=== PATIENT | male | born 1945 | race Caucasian/White ===

== ENCOUNTER 2017-02-03 15:01 | Emergency (ER) | payer MEDICARE, OTHER ==
[~2017-02-03] VITALS: Ht 175.3 cm; Wt 82.5 kg
[~2017-02-03 15:01] MED LIST: FER325 PO; LOSA1TAB3 PO; TOF50 PO; VALS160T20 PO; VILA40TA PO
[2017-02-03 15:03] VITALS: Ht 175.3 cm; Wt 82.5 kg
--- NOTE | 2017-02-03 17:06 | RADRPT ---
PROCEDURE: CT Brain without contrast. CLINICAL INDICATION: Fall with head injury. TECHNIQUE: A CT of the brain was performed on a [employer] CT scanner utilizi ng a low dose technique with axial imaging from the skull base through the vertex without IV contras t. Multiplanar reformatted images were made. Images were reviewed on a PACS workstation. The CTDI vol is 43.3 mGy and the DLP is 720.2 mGycm. One or more of the following dose reduction techniques were used: - Automated exposure control. - Adjustment of the mA and/or kV according to patient size. Use of iterative reconstruction technique. COMPARISON: None FINDINGS: The fourth ventricle is normal in size. The third and lateral ventricles are moderately dilated wit h proportional sulcal dilatation noted. A left frontal craniectomy was performed with encephalomala abhijeet of the left frontal lobe possibly from prior partial left frontal lobectomy. Subcutaneous emphys sary is noted at the site of the left frontal craniectomy which could be postsurgical in nature. There are vascular calcifications in the cavernous portions of the internal carotid arteries. There is skin lisette over the ventral scalp near the right frontal bone. The visible portions of the globes and extraocular muscles are normal. The paranasal sinuses are cl ear. The mastoid air cells and internal auditory canals are normal. The bony calvarium is intact. IMPRESSION: 1. Status post left frontal craniectomy with packing material containing small air pockets noted at the craniectomy site. 2. Scans lisette are noted adjacent to the outer table of the right frontal bone along the surface of the scalp. 3. 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 4. Atherosclerotic vascular calcifications in the cavernous portions of the internal carotid arteri es. 5. Mild cerebral atrophy. 6. Findings were discussed with Dr. Agrawal. RPTAT:AAJJ Physician Carmine Date Time Electronically viewed and signed by Physician Carmine on 02/03/2017 17:06 /
[2017-02-03] MEDS ORDERED: HYDR-3671 PO (17:08)
[2017-02-03] MEDS ORDERED: FOLI-49 PO (17:09)
[2017-02-03] MEDS ORDERED: FER325 PO (17:09)
[2017-02-03] MEDS ORDERED: CLON0.5T4 PO (17:10)
[2017-02-03] MEDS ORDERED: OMEP40CA6 PO (17:11)
[2017-02-03] MEDS ORDERED: TOF50 PO (17:11)
[2017-02-03] MEDS ORDERED: ROPI1TAB PO (17:11)
[2017-02-03] MEDS ORDERED: VILA40TA PO (17:12)
--- NOTE | 2017-02-03 17:25 | ERD ---
ER Documentation Chief Complaint Date/Time DATE: 02/03/17 TIME: 17:23 Chief Complaint dizziness x yesterday fell and hit head yesterday, denies pain HPI Patient is a 72-year-old male with hypertension and skin cancer who presents with a fall. The patient had a skin cancer removed 20 days ago. 2 days ago he fell and hit his head. He lost consciousness for a short period of time and has been dizzy since then. He is not on blood thinning medicines. His doctor told him to go to the emergency department for a CT scan of the brain. ROS All systems reviewed and are negative except as per history of present illness. Medications Home Meds Reported Medications Vilazodone Hcl (Viibryd) 40 Mg Tablet, 40 MG PO DAILY, TAB 02/03/17 Imipramine Hcl* (Imipramine Hcl*) 50 Mg Tablet, 50 MG PO HS, TAB 02/03/17 Omeprazole* (Omeprazole*) 40 Mg Capsule.dr, 40 MG PO DAILY, #30 CAP 02/03/17 Ropinirole Hcl* (Ropinirole Hcl*) 1 Mg Tablet, 1 MG PO HS, TAB 02/03/17 Clonazepam* (Clonazepam*) 0.5 Mg Tablet, 0.5 MG PO DAILY Y for ANXIETY, TAB 02/03/17 Folic Acid* (Folic Acid*) 1 Mg Tablet, 1 MG PO DAILY, TAB 02/03/17 Ferrous Sulfate* (Ferrous Sulfate*) 325 Mg Tabec, 325 MG PO BID, TAB 02/03/17 Hydralazine Hcl* (Hydralazine Hcl*) 25 Mg Tab, 25 MG PO BID, #60 TAB 02/03/17 Discontinued Reported Medications Ferrous Sulfate* (Ferrous Sulfate*) 325 Mg Tabec, 325 MG PO DAILY, TAB 03/29/16 Valsartan* (Diovan*) 160 Mg Tablet, 160 MG PO DAILY, TAB 03/29/16 Imipramine Hcl* (Imipramine Hcl*) 50 Mg Tablet, 50 MG PO HS, TAB 03/29/16 Vilazodone Hcl (Viibryd) 40 Mg Tablet, 40 MG PO DAILY, TAB 11/21/15 Losartan-Hydrochlorothiazide (Hyzaar) 50-12.5 Mg Tab, 1 MG PO DAILY, TAB 11/21/15 Allergies Allergies: Coded Allergies: ondansetron (Verified Allergy, Unknown, PAIN/HIVES, 02/03/17) PMhx/Soc History of Surgery: Yes (SPINE SURGERY AND BOWEL) Anesthesia Reaction: No Hx Neurological Disorder: No Hx Respiratory Disorders: No Hx Cardiac Disorders: Yes (HTN) Hx Psychiatric Problems: No Hx Miscellaneous Medical Probl: No (lac to forehead) Hx Alcohol Use: No Hx Substance Use: No Hx Tobacco Use: No Smoking Status: Never smoker FmHx Family History: diabetes Physical Exam Vitals Vital Signs Date Time Temp Pulse Resp B/P Pulse Ox O2 Delivery O2 Flow Rate FiO2 02/03/17 15:03 96.7 65 18 123/75 99 Physical Exam Const: No acute distress Head: Atraumatic Eyes: Normal Conjunctiva ENT: Normal External Ears, Nose and Mouth. Neck: Full range of motion..~ No meningismus. Resp: Clear to auscultation bilaterally Cardio: Regular rate and rhythm, no murmurs Abd: Soft, non tender, non distended. Normal bowel sounds Skin: Incision to the right forehead is clean, dry, and intact Back: No midline or flank tenderness Ext: No cyanosis, or edema Neur: Awake and alert, cranial nerves II through XII intact, strength is 5 out of 5 in all 4 extremities Psych: Normal Mood and Affect Procedures/MDM CT brain negative for skull fracture or intracranial hemorrhage per radiology. Patient is a 72-year-old male who presents after a fall with loss of consciousness. It was a trip and fall and he did not have syncope. The patient 's CT scan of the brain shows no skull fracture or intracranial hemorrhage. At this point I believe outpatient management is appropriate. The patient will need to follow-up closely with his primary doctor within 24-48 hours. I believe he likely has a concussion. Departure Diagnosis: Primary Impression: Concussion Encounter type: initial encounter Loss of consciousness presence/duration: without LOC Qualified Code: S06.0X0A - Concussion, without LOC, initial encounter Additional Impression: Acute head injury Encounter type: initial encounter Qualified Code: S09.90XA - Acute head injury, initial encounter Condition: Fair Patient Instructions: After a Concussion Referrals: Your doctor Additional Instructions: Call your primary care doctor TOMORROW for an appointment during the next 1-2 days.See the doctor sooner or return here if your condition worsens before your appointment time. KAREN HULL MD Feb 03, 2017 17:25
== END 2017-02-03 17:45 | disposition home or self-care (01) ==
LOC: E/R 15:01
DX: S06.0X0A Concussion without loss of consciousness, initial encounter (principal); I10 Essential (primary) hypertension; W18.39XA Other fall on same level, initial encounter; Y92.9 Unspecified place or not applicable; Z85.828 Personal history of other malignant neoplasm of skin
CPT/HCPCS: 70450

== ENCOUNTER 2017-03-23 13:07 | Observation (INO) | payer MEDICARE, OTHER ==
[~2017-03-23] VITALS: Ht 172.7 cm; Wt 82.5 kg
[~2017-03-23 13:07] MED LIST changes: +CLON0.5T4 PO; +FOLI-49 PO; +HYDR-3671 PO; -LOSA1TAB3 PO; +OMEP40CA6 PO; +ROPI1TAB PO; -VALS160T20 PO
[2017-03-23] MEDS ORDERED: SOD CHLORIDE 0.9% 1,000 ML IV STA (14:46)
[2017-03-23 15:18] LABS: BASOPHILS % 0.1 % (0.0-2.0); EOSINOPHILS # 0.1 10^3/ul (0.0-0.5); EOSINOPHILS % 0.3 % (0.0-7.0); HEMOGLOBIN 15.5 g/dl (14.0-18.0); LYMPHOCYTES # 1.2 10^3/ul (0.8-2.9); LYMPHOCYTES % 7.4 % (15.0-51.0); MEAN CORPUSCULAR HEMOGLOBIN 29.5 pg (29.0-33.0); MEAN CORPUSCULAR VOLUME 89.5 fl (82.0-101.0); MEAN PLATELET VOLUME 9.7 fl (7.4-10.4); MONOCYTE # 0.8 10^3/ul (0.3-0.9); NEUTROPHILS % 86.7 % (39.0-77.0); PLATELET COUNT 296 10^3/UL (140-415); RED BLOOD COUNT 5.25 10^6/ul (4.70-6.10); RED CELL DISTRIBUTION WIDTH 15.2 % (11.5-14.5); WHITE BLOOD COUNT 15.7 10^3/ul (4.8-10.8)
--- NOTE | 2017-03-23 15:24 | ERA ---
ER Documentation Chief Complaint Date/Time DATE: 03/23/17 TIME: 15:22 Chief Complaint abd pain with nausea since yesterday HPI Patient is a 72-year-old male who presents with abdominal bloating, nausea and burping with constipation and obstipation since yesterday. He denies vomiting. He denies pain at rest, but has pain with movement in the left side of the abdomen. He denies fever. The patient states that the symptoms are similar to prior episodes of small bowel obstruction. ROS All systems reviewed and are negative except as per history of present illness. Medications Home Meds Reported Medications Olmesartan-Hydrochlorothiazide (Benicar HCT) 20-12.5 Mg Tablet, 1 TAB PO QAM, # 30 TAB 03/23/17 Olmesartan Medoxomil (Benicar) 20 Mg Tablet, 20 MG PO QPM, #30 TAB 03/23/17 Amlodipine Besylate* (Norvasc*) 5 Mg Tablet, 5 MG PO DAILY, TAB 03/23/17 Vilazodone Hcl (Viibryd) 40 Mg Tablet, 40 MG PO QAM, TAB 02/03/17 Imipramine Hcl* (Imipramine Hcl*) 50 Mg Tablet, 50 MG PO HS, TAB 02/03/17 Ropinirole Hcl* (Ropinirole Hcl*) 1 Mg Tablet, 1 MG PO HS, TAB 02/03/17 Folic Acid* (Folic Acid*) 1 Mg Tablet, 1 MG PO DAILY, TAB 02/03/17 Ferrous Sulfate* (Ferrous Sulfate*) 325 Mg Tabec, 325 MG PO BID, TAB 02/03/17 Discontinued Reported Medications Omeprazole* (Omeprazole*) 40 Mg Capsule.dr, 40 MG PO DAILY, #30 CAP 02/03/17 Clonazepam* (Clonazepam*) 0.5 Mg Tablet, 0.5 MG PO DAILY Y for ANXIETY, TAB 02/03/17 Hydralazine Hcl* (Hydralazine Hcl*) 25 Mg Tab, 25 MG PO BID, #60 TAB 02/03/17 Allergies Allergies: Coded Allergies: ondansetron (Verified Allergy, Unknown, PAIN/HIVES, 03/23/17) PMhx/Soc Past medical history: Hypertension, depression, recurrent SBO Past surgical history: Partial bowel resection due to trauma, lysis of adhesions for SBO, hernia repair, drainage of spinal abscess Social history: Denies tobacco, alcohol or illicit drugs History of Surgery: Yes (SPINE SURGERY AND BOWEL) Anesthesia Reaction: No Hx Neurological Disorder: No Hx Respiratory Disorders: No Hx Cardiac Disorders: Yes (HTN) Hx Psychiatric Problems: No Hx Miscellaneous Medical Probl: No (lac to forehead, multiple bowel obstructions) Hx Alcohol Use: No Hx Substance Use: No Hx Tobacco Use: No Smoking Status: Never smoker FmHx Family History: No coronary disease, No diabetes Physical Exam Vitals Vital Signs Date Time Temp Pulse Resp B/P Pulse Ox O2 Delivery O2 Flow Rate FiO2 03/23/17 17:00 75 16 128/80 99 Room Air 03/23/17 13:16 97.9 79 18 127/81 99 Physical Exam Const: Alert, no acute distress Head: Atraumatic Eyes: Normal Conjunctiva, no pallor, no icterus ENT: Normal External Ears, Nose and Mouth. Mucous membranes moist Neck: Full range of motion..~ No meningismus. Resp: Clear to auscultation bilaterally, no wheezes, no rales Cardio: Regular rate and rhythm, no murmurs Abd: Soft, mildly distended, slight tenderness in left lower and left upper quadrants, diminished bowel sounds diffusely. No guarding or rebound. Skin: No petechiae or rashes Back: No midline or flank tenderness Ext: No cyanosis, or edema Neur: Awake and alert, cranial nerves II through XII intact bilaterally, strength and sensation full in 4 extremities Psych: Normal Mood and Affect Result Diagram: 03/23/17 1500 03/23/17 1500 Results 24 hrs Laboratory Tests Test 03/23/17 15:00 03/23/17 17:20 White Blood Count 15.710^3/ul Red Blood Count 5.2510^6/ul Hemoglobin 15.5g/dl Hematocrit 47.0% Mean Corpuscular Volume 89.5fl Mean Corpuscular Hemoglobin 29.5pg Mean Corpuscular Hemoglobin Concent 33.0g/dl Red Cell Distribution Width 15.2% Platelet Count 06789^3/UL Mean Platelet Volume 9.7fl Neutrophils % 86.7% Lymphocytes % 7.4% Monocytes % 5.0% Eosinophils % 0.3% Basophils % 0.1% Nucleated Red Blood Cells % 0.0/100WBC Neutrophils # (Manual) 13.610^3/ul Lymphocytes # 1.210^3/ul Monocytes # 0.810^3/ul Eosinophils # 0.110^3/ul Basophils # 0.010^3/ul Nucleated Red Blood Cells # 0.010^3/ul Prothrombin Time 11.7Sec Prothrombin Time Ratio 0.9 INR International Normalized Ratio 0.86 Activated Partial Thromboplast Time 31.5Sec Sodium Level 143mmol/L Potassium Level 4.6mmol/L Chloride Level 96mmol/L Carbon Dioxide Level 29mmol/L Anion Gap 23 Blood Urea Nitrogen 20mg/dl Creatinine 1.56mg/dl Glucose Level 145mg/dl Lactic Acid Level 2.8mmol/L Calcium Level 10.0mg/dl Total Bilirubin 1.1mg/dl Direct Bilirubin 0.00mg/dl Indirect Bilirubin 1.1mg/dl Aspartate Amino Transf (AST/SGOT) 22IU/L Alanine Aminotransferase (ALT/SGPT) 30IU/L Alkaline Phosphatase 107IU/L Total Protein 8.6g/dl Albumin 4.5g/dl Globulin 4.10g/dl Albumin/Globulin Ratio 1.09 Lipase 58U/L Urine Color STRAW Urine Clarity CLEAR Urine pH 7.0 Urine Specific [place] 1.005 Urine Ketones NEGATIVEmg/dL Urine Nitrite NEGATIVEmg/dL Urine Bilirubin NEGATIVEmg/dL Urine Urobilinogen NEGATIVEmg/dL Urine Leukocyte Esterase NEGATIVELeu/ul Urine Hemoglobin NEGATIVEmg/dL Urine Glucose NEGATIVEmg/dL Urine Total Protein NEGATIVEmg/dl Current Medications Medications (Trade) Dose Ordered Sig/Ashly Route PRN Reason Start Time Stop Time Status Last Admin Dose Admin Sodium Chloride 1,000 ml @ 1,000 mls/hr Q1H STAT IV 03/23/17 14:46 03/23/17 15:45 DC 03/23/17 15:14 Ciprofloxacin/ Dextrose 200 ml @ 200 mls/hr ONCE ONCE IVPB 03/23/17 18:30 03/23/17 19:29 DC 03/23/17 19:29 Metronidazole 100 ml @ 100 mls/hr ONCE ONCE IVPB 03/23/17 18:30 03/23/17 19:29 DC 03/23/17 18:48 Sodium Chloride (NS) 1,000 ml @ 1,000 mls/hr Q1H ONCE IV 03/23/17 18:30 03/23/17 19:29 DC 03/23/17 18:48 Acetaminophen (Tylenol Tab) 650 mg ER BRIDGE PRN PO MILD PAIN/FEVER 03/23/17 19:30 03/24/17 19:29 Procedures/MDM MDM: Patient is a 72-year-old male who presents with abdominal pain, constipation and obstipation, and abdominal distention. The patient has history of recurrent small bowel obstructions due to prior surgery. Lab evaluation showed leukocytosis and slightly elevated lactic acid. CT scan was performed without contrast due to elevated creatinine, and shows no evidence of calcifications of the mesenteric arteries that would suggest potential for ischemic colitis. He has moderate tenderness and minimal pain without palpation , which is also not suggestive of ischemic etiology. His CT does show diffuse edema to the small and large bowel suggestive of enterocolitis. I discussed the findings with the radiologist, and he states that the pattern is nonspecific. He also states that he cannot exclude early or partial small bowel obstruction. Given the patient's complicated history and elevated lactic acid, I will admit him to the hospital for observation. He was given IV fluids and antibiotics in the ER. Other than leukocytosis and elevated lactic acid, there are no signs of sepsis such as fever or tachycardia. The patient was therefore given judicious fluids rather than weight-based bolus. Departure Diagnosis: Primary Impression: Enterocolitis Condition: JAMES Pepe MD Mar 23, 2017 15:19
[2017-03-23] MEDS ORDERED: AMLO5TAB4 PO (15:28)
[2017-03-23] MEDS ORDERED: OLME20TA20 PO (15:30)
[2017-03-23] MEDS ORDERED: BENHCT2012 PO (15:32)
[2017-03-23 15:40] LABS: INR 0.86; PROTIME 11.7 Sec (12.2-14.2); PT RATIO 0.9
[2017-03-23 15:41] LABS: PARTIAL THROMBOPLASTIN TIME 31.5 Sec (25.0-35.0)
[2017-03-23 15:43] LABS: ALBUMIN 4.5 g/dl (3.3-4.9); ALBUMIN/GLOBULIN RATIO 1.09; BILIRUBIN,INDIRECT 1.1 mg/dl (0-1.1); BILIRUBIN,TOTAL 1.1 mg/dl (0.2-1.3); CREATININE 1.56 mg/dl (0.61-1.24); POTASSIUM 4.6 mmol/L (3.5-5.1); TOTAL PROTEIN 8.6 g/dl (6.1-8.1)
[2017-03-23 17:56] LABS: ADD UMIC NO; UR ASCORBIC ACID NEGATIVE (NEGATIVE); UR BILIRUBIN (Dip) NEGATIVE (NEGATIVE); UR BLOOD (Dip) NEGATIVE (NEGATIVE); UR CLARITY CLEAR (CLEAR); UR COLOR STRAW (YELLOW); UR GLUCOSE (Dip) NEGATIVE (NEGATIVE); UR KETONES (Dip) NEGATIVE (NEGATIVE); UR LEUKOCYTE ESTERASE (Dip) NEGATIVE Leu/ul (NEGATIVE); UR NITRITE (Dip) NEGATIVE (NEGATIVE); UR SPECIFIC GRAVITY (Dip) 1.005 (1.003-1.030); UR TOTAL PROTEIN (Dip) NEGATIVE (NEGATIVE); UR UROBILINOGEN (Dip) NEGATIVE (NEGATIVE)
--- NOTE | 2017-03-23 18:02 | RADRPT ---
AMENDMENT: 03/23/2017 6:21:26 PM Nick Garza M.D IMPRESSION: 1. Diffusely distended and fluid-filled small and large bowel which may represent enterocolitis. T he possibility of an ileus should also be considered. In addition, the small bowel proximal to the a nastomosis sutures are more dilated compared to the small bowel distal to the anastomosis sutures. T hus, the possibility of a small bowel obstruction cannot be excluded. 2. Urinary bladder wall thickening which may be secondary to outlet obstruction from the moderately enlarged prostate. Recommend PSA correlation. Results were discussed with Fletcher De at 03/23/2017 6:20:22 PM PROCEDURE: CT abdomen and pelvis without IV contrast. CLINICAL INDICATION: Abdominal pain TECHNIQUE: CT scan of the abdomen and pelvis without contrast was performed on the [employer] [address] scanner[address] The patient was scanned without intravenous contrast. Coronal and sagittal refo rmatted images were obtained from the axial source images. The CTDI vol is 13.94 mGy and the DLP is 846.98 mGy-cm. COMPARISON: None. FINDINGS: CT abdomen: Bibasilar atelectasis is seen. The remaining lung bases are clear. The heart size is not enlarged and is without pericardial thickening or effusion. The liver is normal in size and density and is without focal mass or intrahepatic biliary dilatation . The spleen is normal in size and homogeneous in density. The stomach is grossly unremarkable. T he pancreas as visualized is normal. The gallbladder and biliary tree are unremarkable and there is no evidence for common bile duct dilatation. The adrenal glands are symmetric and normal. The kid neys are symmetrically unremarkable as well. No renal calculus or obstructive uropathy or mass lesi on is seen. The aorta is of normal in caliber. There is no retroperitoneal lymphadenopathy. The sachin hepatis region is clear. The small bowel is diffusely distended and fluid-filled. Anastomosis sutures are s een in the right lower quadrant small bowel. The large bowel is not distended and fluid-filled from the cecum to the descending colon. The rectosigmoid region is stool-filled. The mesentery, as visua lized, is unremarkable. No inflammatory changes in the periappendiceal region is seen. CT pelvis: The prostate is moderately enlarged. The pelvic sidewalls and inguinal regions are clear. No pelvi c mass, lymphadenopathy, or free fluid is seen. No acute inflammation is seen. The urinary bladder wall is thickened. Diffuse osteopenia is seen. Degenerative spondylosis of the lumbar spine is seen. No osteolytic or osteoblastic lesion is detected. IMPRESSION: 1. Diffusely distended and fluid-filled small and large bowel which may represent intra colitis. T he possibility of an ileus should also be considered. 2. Urinary bladder wall thickening which may be secondary to outlet obstruction from the moderately enlarged prostate. Recommend PSA correlation. RPTAT: HPNM Physician Jean Date Time Electronically viewed and signed by Physician Jean on 03/23/2017 18:21 /
[2017-03-23] MEDS ORDERED: CIPROFLOXACIN 400MG/D5W 200 ML IVPB ONE (18:30)
[2017-03-23] MEDS ORDERED: metroNIDAZOLE 500 MG/NS (PMX) 100 ML IVPB ONE (18:30)
[2017-03-23] MEDS ORDERED: SOD CHLORIDE 0.9% 1,000 ML IV ONE (18:30)
[2017-03-23] MEDS ORDERED: ACETAMINOPHEN 325 MG TAB PO PRN (19:30)
[2017-03-23 21:10] VITALS: BP 163/80; RESP 18
[2017-03-23 21:30] VITALS: Ht 172.7 cm; Wt 82.5 kg
--- NOTE | 2017-03-23 22:02 | HP ---
Date/Time of Note Date/Time of Note DATE: 03/23/17 TIME: 21:58 Assessment/Plan VTE Prophylaxis VTE Prophylaxis Intervention: LMWH Lines/Catheters IV Catheter Type (from Nrsg): Peripheral IV Assessment/Plan Assessment/Plan 1. Mild Sepsis 2/2 Acute enterocolitis causing bowel ileus cannot rule out partial small bowel obstruction 2. Hypertension with suboptimal control 3. History of BPH with bladder wall thickening on CAT scan which is chronic 4. Depression: Stable Plan: Treat patient with antibiotics for colitis, bowel rest for now, IV hydration, and consider SBFT in am Trend lactic acid levels / consider surgical consult if no improvement Resume home antihypertensives, titrate for good control in-house Provide supportive care with pain medicine and antiemetics as needed Continue all other home meds and supplements IV H2 malcolm as well Patient may pursue urology follow-up as outpatient Further interventions per clinical course Prophylaxis: Lovenox / Pepcid HPI/ROS Admit Date/Time Admit Date/Time Mar 23, 2017 at 19:24 Hx of Present Illness This is a 72-year-old male who was brought in by his son because of abdominal pain and discomfort that started earlier today the patient has a history of multiple small bowel obstructions, he feels like he may have another episode. He however has been having bowel movements. There is also been having a lot of burping and loss of appetite. He denies fever he denies vomiting or blood in his stool. A CT of the abdomen and pelvis was done in the emergency room and this showed calcifications that suggest potential for ischemic colitis there is also evidence of enterocolitis on the CT and radiologist cannot exclude an early or partial small bowel obstruction patient also was found to have an elevated lactic acid and was admitted for sepsis secondary to colitis with possibility of a small bowel obstruction. ROS 12 point review if systems was done and pertinent findings are as noted. PMH/Family/Social Past Medical History * Multiple episodes of small bowel obstruction in the past * High blood pressure * BPH * Depression Past Surgical History * Spine surgery Family History Significant Family History: no pertinent family hx Social History Alcohol Use: none Smoking Status: Never smoker Exam/Review of Systems Vital Signs Vitals VS - Last 72 Hours, by Label Date Time Temp Pulse Resp B/P Pulse Ox O2 Delivery O2 Flow Rate FiO2 03/23/17 21:10 97.6 61 18 163/80 98 03/23/17 17:00 75 16 128/80 99 Room Air 03/23/17 13:16 97.9 79 18 127/81 99 Vital Signs Date Time Temp Pulse Resp B/P Pulse Ox O2 Delivery O2 Flow Rate FiO2 03/23/17 21:10 97.6 61 18 163/80 98 03/23/17 17:00 Room Air Exam Exam GENERAL: Patient is alert, oriented x 3, in no apparent distress; does not appear acutely or chronically ill. Patient is able to sit up unassisted.Patient makes good eye contact, is conversant, interactive, coherent. Patient appears calm and comfortable and is able to follow commands. HEENT: Oropharynx is clear. There is no carotid bruit, no masses. Patient's pupils are equal, round and reactive to light bilaterally. Extraocular motions are intact. There is no scleral icterus. There is no facial asymmetry. NECK: Supple. LUNGS: Clear to auscultation bilaterally with good air entry. No Wheezes or crackles. HEART: S1, S2. No murmur, gallops or rubs. Regular rate and rhythm. ABDOMEN: Soft BACK: no costovertebral angle tenderness. GENITOURINARY: Deferred. EXTREMITIES: No edema. There is no cyanosis, clubbing. There are 2+ pulses bilaterally distally. NEUROLOGIC: The patient has no lateralizing signs. Cranial nerves II-XII are intact. SKIN: Otherwise, unremarkable. Labs Result Diagram: 03/23/17 1500 03/23/17 1500 Procedures Procedures Laboratory Tests Test 03/23/17 15:00 03/23/17 17:20 White Blood Count 15.710^3/ul Red Blood Count 5.2510^6/ul Hemoglobin 15.5g/dl Hematocrit 47.0% Mean Corpuscular Volume 89.5fl Mean Corpuscular Hemoglobin 29.5pg Mean Corpuscular Hemoglobin Concent 33.0g/dl Red Cell Distribution Width 15.2% Platelet Count 92926^3/UL Mean Platelet Volume 9.7fl Neutrophils % 86.7% Lymphocytes % 7.4% Monocytes % 5.0% Eosinophils % 0.3% Basophils % 0.1% Nucleated Red Blood Cells % 0.0/100WBC Neutrophils # (Manual) 13.610^3/ul Lymphocytes # 1.210^3/ul Monocytes # 0.810^3/ul Eosinophils # 0.110^3/ul Basophils # 0.010^3/ul Nucleated Red Blood Cells # 0.010^3/ul Prothrombin Time 11.7Sec Prothrombin Time Ratio 0.9 INR International Normalized Ratio 0.86 Activated Partial Thromboplast Time 31.5Sec Sodium Level 143mmol/L Potassium Level 4.6mmol/L Chloride Level 96mmol/L Carbon Dioxide Level 29mmol/L Anion Gap 23 Blood Urea Nitrogen 20mg/dl Creatinine 1.56mg/dl Glucose Level 145mg/dl Lactic Acid Level 2.8mmol/L Calcium Level 10.0mg/dl Total Bilirubin 1.1mg/dl Direct Bilirubin 0.00mg/dl Indirect Bilirubin 1.1mg/dl Aspartate Amino Transf (AST/SGOT) 22IU/L Alanine Aminotransferase (ALT/SGPT) 30IU/L Alkaline Phosphatase 107IU/L Total Protein 8.6g/dl Albumin 4.5g/dl Globulin 4.10g/dl Albumin/Globulin Ratio 1.09 Lipase 58U/L Urine Color STRAW Urine Clarity CLEAR Urine pH 7.0 Urine Specific [place] 1.005 Urine Ketones NEGATIVEmg/dL Urine Nitrite NEGATIVEmg/dL Urine Bilirubin NEGATIVEmg/dL Urine Urobilinogen NEGATIVEmg/dL Urine Leukocyte Esterase NEGATIVELeu/ul Urine Hemoglobin NEGATIVEmg/dL Urine Glucose NEGATIVEmg/dL Urine Total Protein NEGATIVEmg/dl Current Medications Medications (Trade) Dose Ordered Sig/Ashly Route PRN Reason Start Time Stop Time Status Last Admin Dose Admin Sodium Chloride 1,000 ml @ 1,000 mls/hr Q1H STAT IV 03/23/17 14:46 03/23/17 15:45 DC 03/23/17 15:14 1,000 MLS/HR Ciprofloxacin/ Dextrose 200 ml @ 200 mls/hr ONCE ONCE IVPB 03/23/17 18:30 03/23/17 19:29 DC 03/23/17 19:29 200 MLS/HR Metronidazole 100 ml @ 100 mls/hr ONCE ONCE IVPB 03/23/17 18:30 03/23/17 19:29 DC 03/23/17 18:48 100 MLS/HR Sodium Chloride (NS) 1,000 ml @ 1,000 mls/hr Q1H ONCE IV 03/23/17 18:30 03/23/17 19:29 DC 03/23/17 18:48 1,000 MLS/HR Acetaminophen (Tylenol Tab) 650 mg ER BRIDGE PRN PO MILD PAIN/FEVER 03/23/17 19:30 03/24/17 19:29 AMENDMENT: 03/23/2017 6:21:26 PM Nick Garza M.D IMPRESSION: 1. Diffusely distended and fluid-filled small and large bowel which may represent enterocolitis. The possibility of an ileus should also be considered. In addition, the small bowel proximal to the anastomosis sutures are more dilated compared to the small bowel distal to the anastomosis sutures. Thus, the possibility of a small bowel obstruction cannot be excluded. 2. Urinary bladder wall thickening which may be secondary to outlet obstruction from the moderately enlarged prostate. Recommend PSA correlation. Results were discussed with Fletcher De at 03/23/2017 6:20:22 PM PROCEDURE: CT abdomen and pelvis without IV contrast. CLINICAL INDICATION: Abdominal pain TECHNIQUE: CT scan of the abdomen and pelvis without contrast was performed on the [employer] volumetric [address] scanner. The patient was scanned without intravenous contrast. Coronal and sagittal reformatted images were obtained from the axial source images. The CTDI vol is 13.94 mGy and the DLP is 846.98 mGy-cm. COMPARISON: None. FINDINGS: CT abdomen: Bibasilar atelectasis is seen. The remaining lung bases are clear. The heart size is not enlarged and is without pericardial thickening or effusion. The liver is normal in size and density and is without focal mass or intrahepatic biliary dilatation. The spleen is normal in size and homogeneous in density. The stomach is grossly unremarkable. The pancreas as visualized is normal. The gallbladder and biliary tree are unremarkable and there is no evidence for common bile duct dilatation. The adrenal glands are symmetric and normal. The kidneys are symmetrically unremarkable as well. No renal calculus or obstructive uropathy or mass lesion is seen. The aorta is of normal in caliber. There is no retroperitoneal lymphadenopathy. The sachin hepatis region is clear. The small bowel is diffusely distended and fluid-filled. Anastomosis sutures are seen in the right lower quadrant small bowel. The large bowel is not distended and fluid-filled from the cecum to the descending colon. The rectosigmoid region is stool- filled. The mesentery, as visualized, is unremarkable. No inflammatory changes in the periappendiceal region is seen. CT pelvis: The prostate is moderately enlarged. The pelvic sidewalls and inguinal regions are clear. No pelvic mass, lymphadenopathy, or free fluid is seen. No acute inflammation is seen. The urinary bladder wall is thickened. Diffuse osteopenia is seen. Degenerative spondylosis of the lumbar spine is seen. No osteolytic or osteoblastic lesion is detected. IMPRESSION: 1. Diffusely distended and fluid-filled small and large bowel which may represent intra colitis. The possibility of an ileus should also be considered. 2. Urinary bladder wall thickening which may be secondary to outlet obstruction from the moderately enlarged prostate. Recommend PSA correlation. RPTAT: HPNM Physician Jean Date Time Electronically viewed and signed by Physician Jean on 03/23/2017 18 :21 / CC: FLETCHER DE MD, BOLATITO M. Mar 23, 2017 22:02
[2017-03-23] MEDS ORDERED: ONDANSETRON 4 MG INJ IV PRN (22:30)
[2017-03-23] MEDS ORDERED: CIPROFLOXACIN 400MG/D5W 200 ML IVPB SCH (22:30)
[2017-03-23 22:32] VITALS: BP 127/63; PULSE 61
[2017-03-23] MEDS: DOCUSATE SODIUM 100 MG CAP PO SCH (22:47)
[2017-03-23] MEDS ORDERED: IMIPRAMINE 25 MG TAB PO SCH (23:00)
[2017-03-23] MEDS ORDERED: METOCLOPRAMIDE 10 MG INJ IV PRN (23:00)
[2017-03-23] MEDS ORDERED: morphine 2 MG INJ IV PRN (23:00)
[2017-03-24 02:05] VITALS: BP 137/65; RESP 16
[2017-03-24] MEDS: metroNIDAZOLE 500 MG/NS (PMX) 100 ML IVPB SCH ×2 (05:51→14:00)
[2017-03-24 06:51] LABS: BASOPHILS % 0.1 % (0.0-2.0); EOSINOPHILS # 0.2 10^3/ul (0.0-0.5); EOSINOPHILS % 2.7 % (0.0-7.0); HEMATOCRIT 39.8 % (42.0-52.0); HEMOGLOBIN 13.1 g/dl (14.0-18.0); LYMPHOCYTES # 1.8 10^3/ul (0.8-2.9); LYMPHOCYTES % 24.8 % (15.0-51.0); MEAN CORPUSCULAR HEMOGLOBIN 29.6 pg (29.0-33.0); MEAN CORPUSCULAR HGB CONC 32.9 g/dl (32.0-37.0); MEAN CORPUSCULAR VOLUME 89.8 fl (82.0-101.0); MEAN PLATELET VOLUME 9.9 fl (7.4-10.4); MONOCYTE # 0.5 10^3/ul (0.3-0.9); MONOCYTES % 7.6 % (0.0-11.0); NEUTROPHILS % 64.4 % (39.0-77.0); PLATELET COUNT 232 10^3/UL (140-415); RED BLOOD COUNT 4.43 10^6/ul (4.70-6.10); RED CELL DISTRIBUTION WIDTH 15.4 % (11.5-14.5); WHITE BLOOD COUNT 7.1 10^3/ul (4.8-10.8)
[2017-03-24 07:34] LABS: CALCIUM 9.1 mg/dl (8.4-10.2); CREATININE 1.35 mg/dl (0.61-1.24); MAGNESIUM 2.1 mg/dl (1.7-2.5); PHOSPHORUS 3.2 mg/dl (2.5-4.9); POTASSIUM 4.3 mmol/L (3.5-5.1)
[2017-03-24 07:57] VITALS: BP 112/73; RESP 16
[2017-03-24 08:02] LABS: THYROID STIMULATING HORMONE 1.8 MIU/L (0.465-4.680)
[2017-03-24] MEDS ORDERED: AMLODIPINE 5 MG TAB PO SCH (09:00)
[2017-03-24] MEDS: DOCUSATE SODIUM 100 MG CAP PO SCH (09:00)
[2017-03-24] MEDS ORDERED: NON-FORMULARY/PATIENT OWN MED (Vilazodone Hcl (Viibryd) 40 MG) PO SCH (09:00)
[2017-03-24] MEDS ORDERED: FOLIC ACID 1 MG TAB PO SCH (09:00)
[2017-03-24] MEDS ORDERED: ENOXAPARIN 40 MG/0.4 ML SYG SC SCH (09:00)
[2017-03-24] MEDS ORDERED: VILAZODONE 40 MG PO SCH (09:00)
[2017-03-24] MEDS ORDERED: FERROUS SULFATE (EC) 325 MG TAB PO SCH (09:00)
[2017-03-24] MEDS ORDERED: HCTZ PO SCH (09:00)
[2017-03-24] MEDS ORDERED: OLMESARTAN HYDROCHLOROTHIAZIDE PO SCH (09:00)
[2017-03-24] MEDS ORDERED: OLMESARTAN PO SCH (09:00)
[2017-03-24 14:25] VITALS: BP 105/78; RESP 18
--- NOTE | 2017-03-24 16:12 | DS ---
Date/Time of Note Date/Time of Note DATE: 03/24/17 TIME: 16:04 Discharge Summary Admission/Discharge Info Admit Date/Time Mar 23, 2017 at 19:24 Discharge Date/Time Discharge Diagnosis 1. Likely partial bowel obstruction, resolved 2. Hypertension, stable 3. depression, stable. Patient Condition: Stable Hx of Present Illness This is a 72-year-old male who was brought in by his son because of abdominal pain and discomfort that started earlier today the patient has a history of multiple small bowel obstructions, he feels like he may have another episode. He however has been having bowel movements. There is also been having a lot of burping and loss of appetite. He denies fever he denies vomiting or blood in his stool. A CT of the abdomen and pelvis was done in the emergency room and this showed calcifications that suggest potential for ischemic colitis there is also evidence of enterocolitis on the CT and radiologist cannot exclude an early or partial small bowel obstruction patient also was found to have an elevated lactic acid and was admitted for sepsis secondary to colitis with possibility of a small bowel obstruction. Hospital Course Patient's symptoms resolved after admission. He has several normal bowel movement. He has no nausea or vomiting, no diarrhea. No fever or chills. WBC was 15,700 on admission that resolved. Patient may had partial bowel obstruction that has resolved. No antibiotics needed on discharge. Home Meds Reported Medications Olmesartan-Hydrochlorothiazide (Benicar HCT) 20-12.5 Mg Tablet, 1 TAB PO QAM, # 30 TAB 03/23/17 Olmesartan Medoxomil (Benicar) 20 Mg Tablet, 20 MG PO QPM, #30 TAB 03/23/17 Amlodipine Besylate* (Norvasc*) 5 Mg Tablet, 5 MG PO DAILY, TAB 03/23/17 Vilazodone Hcl (Viibryd) 40 Mg Tablet, 40 MG PO QAM, TAB 02/03/17 Imipramine Hcl* (Imipramine Hcl*) 50 Mg Tablet, 50 MG PO HS, TAB 02/03/17 Ropinirole Hcl* (Ropinirole Hcl*) 1 Mg Tablet, 1 MG PO HS, TAB 02/03/17 Folic Acid* (Folic Acid*) 1 Mg Tablet, 1 MG PO DAILY, TAB 02/03/17 Ferrous Sulfate* (Ferrous Sulfate*) 325 Mg Tabec, 325 MG PO BID, TAB 02/03/17 Discontinued Reported Medications Omeprazole* (Omeprazole*) 40 Mg Capsule.dr, 40 MG PO DAILY, #30 CAP 02/03/17 Clonazepam* (Clonazepam*) 0.5 Mg Tablet, 0.5 MG PO DAILY Y for ANXIETY, TAB 02/03/17 Hydralazine Hcl* (Hydralazine Hcl*) 25 Mg Tab, 25 MG PO BID, #60 TAB 02/03/17 Follow-up Plan PCP in one week Primary Care Provider Not On Staff Doctor Pending Labs Laboratory Tests Test 03/23/17 17:20 03/24/17 05:44 Urine Color STRAW (YELLOW) Urine Clarity CLEAR (CLEAR) Urine pH 7.0 (5.0-9.0) Urine Specific [place] 1.005 (1.003-1.030) Urine Ketones NEGATIVEmg/dL (NEGATIVE) Urine Nitrite NEGATIVEmg/dL (NEGATIVE) Urine Bilirubin NEGATIVEmg/dL (NEGATIVE) Urine Urobilinogen NEGATIVEmg/dL (NEGATIVE) Urine Leukocyte Esterase NEGATIVELeu/ul (NEGATIVE) Urine Hemoglobin NEGATIVEmg/dL (NEGATIVE) Urine Glucose NEGATIVEmg/dL (NEGATIVE) Urine Total Protein NEGATIVEmg/dl (NEGATIVE) White Blood Count 7.110^3/ul (4.8-10.8) Red Blood Count 4.4310^6/ul (4.70-6.10) Hemoglobin 13.1g/dl (14.0-18.0) Hematocrit 39.8% (42.0-52.0) Mean Corpuscular Volume 89.8fl (82.0-101.0) Mean Corpuscular Hemoglobin 29.6pg (29.0-33.0) Mean Corpuscular Hemoglobin Concent 32.9g/dl (32.0-37.0) Red Cell Distribution Width 15.4% (11.5-14.5) Platelet Count 16772^3/UL (140-415) Mean Platelet Volume 9.9fl (7.4-10.4) Neutrophils % 64.4% (39.0-77.0) Lymphocytes % 24.8% (15.0-51.0) Monocytes % 7.6% (0.0-11.0) Eosinophils % 2.7% (0.0-7.0) Basophils % 0.1% (0.0-2.0) Nucleated Red Blood Cells % 0.0/100WBC (0.0-0.0) Neutrophils # (Manual) 4.610^3/ul (1.7-7.5) Lymphocytes # 1.810^3/ul (0.8-2.9) Monocytes # 0.510^3/ul (0.3-0.9) Eosinophils # 0.210^3/ul (0.0-0.5) Basophils # 0.010^3/ul (0.0-0.1) Nucleated Red Blood Cells # 0.010^3/ul (0.0-0.0) Sodium Level 140mmol/L (135-144) Potassium Level 4.3mmol/L (3.5-5.1) Chloride Level 105mmol/L (97-110) Carbon Dioxide Level 27mmol/L (21-31) Anion Gap 12 (8-16) Blood Urea Nitrogen 17mg/dl (7-20) Creatinine 1.35mg/dl (0.61-1.24) Glucose Level 88mg/dl (70-220) Lactic Acid Level 1.1mmol/L (0.5-2.0) Calcium Level 9.1mg/dl (8.4-10.2) Phosphorus Level 3.2mg/dl (2.5-4.9) Magnesium Level 2.1mg/dl (1.7-2.5) Thyroid Stimulating Hormone (TSH) 1.800MIU/L (0.465-4.680) JANETTE PADILLA MD Mar 24, 2017 16:12
[2017-03-24] MEDS ORDERED: ROPINIROLE 1 MG TAB PO SCH (21:00)
== END 2017-03-24 18:57 | disposition home or self-care (01) ==
LOC: E/R 13:07 → PP2 19:24
PROVIDERS: ADMIT Internal Medicine; ATTEND Internal Medicine
DX: K52.9 Noninfective gastroenteritis and colitis, unspecified (principal); I10 Essential (primary) hypertension; F32.9 Major depressive disorder, single episode, unspecified; Z88.8 Allergy status to other drugs, medicaments and biological substances
CPT/HCPCS: 36415; 74176; 80048; 80053; 81003; 83605; 83690; 83735; 84100; 84443; 85025; 85610; 85730; 96374; 96375; 99285; G0378; J0744; J7030; J1650

== ENCOUNTER 2018-12-20 00:53 | Inpatient (IN) | payer MEDICARE, OTHER ==
[~2018-12-20] VITALS: Ht 182.9 cm; Wt 87.0 kg
[~2018-12-20 00:53] MED LIST changes: +AMLO5TAB4 PO; +BENHCT2012 PO; -CLON0.5T4 PO; -HYDR-3671 PO; +OLME20TA20 PO; -OMEP40CA6 PO
[2018-12-20] MEDS ORDERED: SOD CHLORIDE 0.9% 500 ML IV STA (01:14)
[2018-12-20] MEDS ORDERED: morphine 4 MG/ML VIAL IV ONE (01:15)
[2018-12-20] MEDS ORDERED: IMIP25TA3 PO (02:48)
[2018-12-20] MEDS ORDERED: CLON0.5T14 PO (02:48)
[2018-12-20] MEDS ORDERED: IRBE300T15 PO (02:48)
[2018-12-20] MEDS ORDERED: METOCLOPRAMIDE 10 MG INJ IV ONE (03:00)
[2018-12-20 04:42] VITALS: Ht 182.9 cm; Wt 87.0 kg
[2018-12-20 04:45] VITALS: BP 160/74; PULSE 78; RESP 18
[2018-12-20] MEDS ORDERED: ALBUTEROL/IPRATROPIUM (NEB) 3 ML AMP HHN PRN (05:30)
[2018-12-20] MEDS ORDERED: ONDANSETRON 4 MG INJ IV PRN (05:30)
[2018-12-20] MEDS ORDERED: NACL 0.9% 3 ML SYG IV SCH (05:30)
[2018-12-20] MEDS ORDERED: morphine 2 MG INJ IV PRN (05:30)
[2018-12-20] MEDS ORDERED: DEXTROSE 5%-0.45% NACL 1,000 ML IV SCH (05:30)
--- NOTE | 2018-12-20 06:34 | HP ---
Date/Time of Note Date/Time of Note DATE: 12/20/18 TIME: 06:27 Assessment/Plan VTE Prophylaxis Risk score (from Ns)>0 risk: 3 SCD applied (from Ns): Yes Pharmacological prophylaxis: other Lines/Catheters IV Catheter Type (from Nrsg): Peripheral IV Assessment/Plan Assessment/Plan 1. Recurrent SBO -Keep n.p.o. with IV fluid -NG tube to low intermittent suction -Antiemetics and pain meds as needed -NG tube output is coffee-ground. We will have GI evaluate this. He will be placed on PPI 2. Hypertension: BP is in acceptable range -PRN IV antihypertensives 3. BPH: CT was questionable bladder obstruction -Place a Roland -Start patient on Flomax when no longer n.p.o. -Check PSA 4. History of depression: Resume home meds when no longer n.p.o. Result Diagram: 12/20/18 0130 12/20/18 0130 Results 24hrs Laboratory Tests Test 12/20/18 01:30 White Blood Count 12.3 #H Red Blood Count 5.26 Hemoglobin 15.3 Hematocrit 46.5 Mean Corpuscular Volume 88.4 Mean Corpuscular Hemoglobin 29.1 Mean Corpuscular Hemoglobin Concent 32.9 Red Cell Distribution Width 13.9 Platelet Count 246 Mean Platelet Volume 10.1 Immature Granulocytes % 0.500 H Neutrophils % 84.2 H Lymphocytes % 9.7 L Monocytes % 4.2 Eosinophils % 1.2 Basophils % 0.2 Nucleated Red Blood Cells % 0.0 Immature Granulocytes # 0.060 H Neutrophils # 10.4 H Lymphocytes # 1.2 Monocytes # 0.5 Eosinophils # 0.2 Basophils # 0.0 Nucleated Red Blood Cells # 0.0 Prothrombin Time 11.7 L Prothrombin Time Ratio 0.9 INR International Normalized Ratio 0.85 Activated Partial Thromboplast Time 32.0 Sodium Level 141 Potassium Level 4.5 Chloride Level 102 Carbon Dioxide Level 29 Anion Gap 10 Blood Urea Nitrogen 25 H Creatinine 1.84 H Est Glomerular Filtrat Rate mL/min Glucose Level 144 Calcium Level 10.0 Total Bilirubin 0.9 Direct Bilirubin 0.00 Indirect Bilirubin 0.9 Aspartate Amino Transf (AST/SGOT) 29 Alanine Aminotransferase (ALT/SGPT) 33 Alkaline Phosphatase 109 Troponin I < 0.012 Total Protein 8.5 H Albumin 4.5 Globulin 4.00 H Albumin/Globulin Ratio 1.12 Lipase 74 HPI/ROS Admit Date/Time Admit Date/Time December 20, 2018 at 02:25 Hx of Present Illness Patient is a 73-year-old male with history of BPH, hypertension, depression, multiple abdominal surgeries, recurrent SBO with a history of ventral incisional hernia and adhesion status post open abdominal exploration and lysis of adhesion. Patient presented to ER complaining of abdominal pain/distention. He said symptoms similar to when he has bowel obstructions. Pain started yesterday. Denied nausea or vomiting. Last bowel movement was yesterday. CT abdomen/pelvis shows the following: -High-grade mid small bowel obstruction. The transition point is immediately beyond a small bowel anastomosis where there is abrupt kinking of the bowel and the cause for obstruction may be an adhesion. Recommend placing an enteric tube. -Enlarged prostate gland indents the bladder base. Urinary bladder is moderately full. Recommend clinical correlation for signs of urinary retention. -Please note that in the absence of intravenous contrast the study does not evaluate the patency of the vasculature. NG tube with coffee-ground output PMH/Family/Social Past Medical History Past Medical History Medical History: other (See HPI) Past Surgical History Past Surgical Hx: other (See HPI) Family History Significant Family History: no pertinent family hx Social History Alcohol Use: none Smoking Status: Never smoker Drug Use: none Exam Constitutional: alert, oriented, well developed Head: normocephalic, atraumatic Eyes: EOMI, PERRL Respiratory: clear to auscultation, normal air movement Cardiovascular: regular rate and rhythm, nl pulses Gastrointestinal: soft, non-tender Extremities: normal pulses Medications Current Medications Dextrose/Sodium Chloride 1,000 ml @ 100 mls/hr Q10H IV Last administered on 12/20/18at 05:45; Admin Dose 100 MLS/HR; Start 12/20/18 at 05:30 IV Flush (NS 3 ml) 3 ml PER PROTOCOL IV ; Start 12/20/18 at 05:30 Morphine Sulfate (morphine) 2 mg Q4H PRN IV .SEVERE PAIN 7-10 Last administered on 12/20/18at 05:46; Admin Dose 2 MG; Start 12/20/18 at 05:30 Famotidine (Pepcid Iv) 20 mg Q12 IV ; Start 12/20/18 at 09:00 Albuterol/ Ipratropium (Duoneb) 3 ml Q2H RESP THERAPY PRN HHN SHORTNESS OF BREATH; Start 12/20/18 at 05:30 Coded Allergies: ondansetron (Unverified Allergy, Unknown, PAIN/HIVES, 12/20/18) Family History Significant Family History: no pertinent family hx Social History Smoking Status: Never smoker Exam/Review of Systems Vital Signs Vitals Vital Signs Date Temp Pulse Resp B/P (MAP) Pulse Ox O2 O2 Flow FiO2 Time Delivery Rate 12/20/18 98.2 78 18 160/74 95 Room Air 04:45 (102) Intake and Output 12/19/18 12/19/18 12/20/18 1515:00 23:00 07:00 OutputOutput Total 500 ml BalanceBalance -500 ml WENDY BETTENCOURT MD December 20, 2018 06:34
[2018-12-20 08:05] VITALS: BP 145/80; PULSE 90; RESP 18
[2018-12-20] MEDS ORDERED: FAMOTIDINE 20 MG INJ IV SCH ×2 (09:00→21:00)
[2018-12-20] MEDS ORDERED: hydrALAzine 20 MG INJ IV PRN (09:30)
[2018-12-20] MEDS ORDERED: PANTOPRAZOLE 40 MG INJ IV SCH (10:00)
--- NOTE | 2018-12-20 11:05 | CONS ---
Assessment/Plan Assessment/Plan Hospital Course (Demo Recall) 1. Small bowel obstruction with transition point at mid small bowel:Status post ventral hernia repair and lysis of adhesions in 2016 -NGT to low intermittent suction -Ambulate -N.p.o. -SBFT 2. Abdominal pain: -Pain management 4.Leukocytosis: -Trend 4. JUNG: -Limit nephrotoxic meds -Renally dose meds -Per renal 5. Coffee-ground emesis: -Agree with GI consult and PPI -Hold anticoagulants -Trend H&H 6. BPH: -Agree with Flomax 7.Hypertension history: -Medical management -Highly encouraged weight loss Thank you. Patient seen and examined in collaboration with Dr. Pawan Zee. Consultation Date/Type/Reason Admit Date/Time December 20, 2018 at 02:25 Date of Consultation: December 20, 2018 Type of Consult Surgical Reason for Consultation SBO Requesting Provider: WENDY BETTENCOURT MD Date/Time of Note DATE: 12/20/18 TIME: 10:51 Hx of Present Illness Rich Maldonado Is a 73-year-old man with past medical history of BPH, hypertension, depression, multiple abdominal surgeries including small bowel resection, ventral hernia repair by our team, recurrent SBO who presented to the ER complaining of abdominal pain and distention. Abdominal pain is in the mid abdomen. Associated symptoms include nausea with out vomiting, as well as no flatus x1 day. He denies fevers, chills, congested cough, chest pain, palpitations, trauma to the abdominal area, dysuria, diarrhea,, seizure, rash. CT of the abdomen was performed showing high-grade mid small bowel obstruction transition point immediately beyond the small bowel anastomosis. Laboratory findings significant for leukocytosis. General surgery was asked to evaluate. 12 point review of systems was performed and is negative except as stated in HPI. Past Medical History As above Home Meds Reported Medications Irbesartan* (Irbesartan*) 300 Mg Tablet, 150 MG PO BID for 60 Days TAKE HALF TABLET BY MOUTH (150MG) TWO TIMES DAILY 12/20/18 Clonazepam* (Clonazepam*) 0.5 Mg Tablet, 0.5 MG PO DAILY for 30 Days, #30 12/20/18 Imipramine Hcl* (Imipramine Hcl*) 25 Mg Tablet, 25 MG PO DAILY for 30 Days, #30 12/20/18 Olmesartan-Hydrochlorothiazide (Benicar HCT) 20-12.5 Mg Tablet, 1 TAB PO QAM, #30 TAB 03/23/17 Olmesartan Medoxomil (Benicar) 20 Mg Tablet, 20 MG PO QPM, #30 TAB 03/23/17 Vilazodone Hcl (Viibryd) 40 Mg Tablet, 40 MG PO QAM, TAB 02/03/17 Folic Acid* (Folic Acid*) 1 Mg Tablet, 1 MG PO DAILY, TAB 02/03/17 Discontinued Reported Medications Amlodipine Besylate* (Norvasc*) 5 Mg Tablet, 5 MG PO DAILY, TAB 03/23/17 Imipramine Hcl* (Imipramine Hcl*) 50 Mg Tablet, 50 MG PO HS, TAB 02/03/17 Ropinirole Hcl* (Ropinirole Hcl*) 1 Mg Tablet, 1 MG PO HS, TAB 02/03/17 Ferrous Sulfate* (Ferrous Sulfate*) 325 Mg Tabec, 325 MG PO BID, TAB 02/03/17 Medications Current Medications Dextrose/Sodium Chloride 1,000 ml @ 100 mls/hr Q10H IV Last administered on 12/20/18at 05:45; Admin Dose 100 MLS/HR; Start 12/20/18 at 05:30 IV Flush (NS 3 ml) 3 ml PER PROTOCOL IV ; Start 12/20/18 at 05:30 Morphine Sulfate (morphine) 2 mg Q4H PRN IV .SEVERE PAIN 7-10 Last administered on 12/20/18at 05:46; Admin Dose 2 MG; Start 12/20/18 at 05:30 Famotidine (Pepcid Iv) 20 mg Q12 IV Last administered on 12/20/18at 08:52; Admin Dose 20 MG; Start 12/20/18 at 09:00 Albuterol/ Ipratropium (Duoneb) 3 ml Q2H RESP THERAPY PRN HHN SHORTNESS OF BREATH; Start 12/20/18 at 05:30 Lorazepam (Ativan) 0.5 mg Q8H PRN IV anxiety; Start 12/20/18 at 09:30 Hydralazine HCl (Apresoline) 10 mg Q4H PRN IV sbp >160; Start 12/20/18 at 09:30 Pantoprazole (Protonix Iv) 40 mg BID@06,18 IV Last administered on 12/20/18at 10:46; Admin Dose 40 MG; Start 12/20/18 at 10:00 Allergies: Coded Allergies: ondansetron (Unverified Allergy, Unknown, PAIN/HIVES, 12/20/18) Past Surgical History as above Family History Significant Family History: no pertinent family hx Social History Alcohol Use: none Smoking Status: Never smoker Drug Use: none Exam/Review of Systems Exam Vitals Vital Signs Date Temp Pulse Resp B/P (MAP) Pulse Ox O2 O2 Flow FiO2 Time Delivery Rate 12/20/18 98.1 90 18 145/80 93 Room Air 08:05 (101) Intake and Output 12/19/18 12/19/18 12/20/18 1515:00 23:00 07:00 OutputOutput Total 500 ml BalanceBalance -500 ml Constitutional: alert, oriented, well developed Psych: nl mood/affect; No anxiety Head: normocephalic, atraumatic Eyes: nl conjunctiva, EOMI, nl lids, nl sclera ENMT: nl external ears & nose, nl lips & teeth, mucosa pink and moist, other (NGT with coffee-ground output) Neck: supple, non-tender; No jvd Respiratory: normal air movement; No congested cough Cardiovascular: regular rate and rhythm, nl pulses Gastrointestinal: soft, distended, tender (Mid abdominal) Genitourinary - Male: nl penis, nl scrotum Musculoskeletal: nl extremities to inspection, nl gait and stance Extremities: normal pulses Neurological: nl mental status, nl speech, nl strength Skin: nl turgor; No rash or lesions Lymph: nl lymph nodes Results Result Diagram: 12/20/18 01312/20/18 013 Results 24hrs Laboratory Tests Test 12/20/18 01:30 12/20/18 05:40 12/20/18 09:59 White Blood Count 12.3 #H Red Blood Count 5.26 Hemoglobin 15.3 Hematocrit 46.5 Mean Corpuscular Volume 88.4 Mean Corpuscular Hemoglobin 29.1 Mean Corpuscular Hemoglobin Concent 32.9 Red Cell Distribution Width 13.9 Platelet Count 246 Mean Platelet Volume 10.1 Immature Granulocytes % 0.500 H Neutrophils % 84.2 H Lymphocytes % 9.7 L Monocytes % 4.2 Eosinophils % 1.2 Basophils % 0.2 Nucleated Red Blood Cells % 0.0 Immature Granulocytes # 0.060 H Neutrophils # 10.4 H Lymphocytes # 1.2 Monocytes # 0.5 Eosinophils # 0.2 Basophils # 0.0 Nucleated Red Blood Cells # 0.0 Prothrombin Time 11.7 L Prothrombin Time Ratio 0.9 INR International Normalized Ratio 0.85 Activated Partial Thromboplast Time 32.0 Sodium Level 141 Potassium Level 4.5 Chloride Level 102 Carbon Dioxide Level 29 Anion Gap 10 Blood Urea Nitrogen 25 H Creatinine 1.84 H Est Glomerular Filtrat Rate mL/min Glucose Level 144 Calcium Level 10.0 Total Bilirubin 0.9 Direct Bilirubin 0.00 Indirect Bilirubin 0.9 Aspartate Amino Transf (AST/SGOT) 29 Alanine Aminotransferase (ALT/SGPT) 33 Alkaline Phosphatase 109 Troponin I < 0.012 Total Protein 8.5 H Albumin 4.5 Globulin 4.00 H Albumin/Globulin Ratio 1.12 Lipase 74 Urine Color YELLOW Urine Clarity CLEAR Urine pH 8.0 Urine Specific [place] 1.015 Urine Ketones NEGATIVE Urine Nitrite NEGATIVE Urine Bilirubin NEGATIVE Urine Urobilinogen NEGATIVE Urine Leukocyte Esterase NEGATIVE Urine Hemoglobin NEGATIVE Urine Glucose NEGATIVE Urine Total Protein NEGATIVE Lactic Acid Level 1.6 Medications Medication Current Medications Dextrose/Sodium Chloride 1,000 ml @ 100 mls/hr Q10H IV Last administered on 12/20/18at 05:45; Admin Dose 100 MLS/HR; Start 12/20/18 at 05:30 IV Flush (NS 3 ml) 3 ml PER PROTOCOL IV ; Start 12/20/18 at 05:30 Morphine Sulfate (morphine) 2 mg Q4H PRN IV .SEVERE PAIN 7-10 Last administered on 12/20/18at 05:46; Admin Dose 2 MG; Start 12/20/18 at 05:30 Famotidine (Pepcid Iv) 20 mg Q12 IV Last administered on 12/20/18at 08:52; Admin Dose 20 MG; Start 12/20/18 at 09:00 Albuterol/ Ipratropium (Duoneb) 3 ml Q2H RESP THERAPY PRN HHN SHORTNESS OF BREATH; Start 12/20/18 at 05:30 Lorazepam (Ativan) 0.5 mg Q8H PRN IV anxiety; Start 12/20/18 at 09:30 Hydralazine HCl (Apresoline) 10 mg Q4H PRN IV sbp >160; Start 12/20/18 at 09:30 Pantoprazole (Protonix Iv) 40 mg BID@06,18 IV Last administered on 12/20/18at 10:46; Admin Dose 40 MG; Start 12/20/18 at 10:00 ABHIJEET NAPOLES NP December 20, 2018 11:02
[2018-12-20] MEDS ORDERED: IOHEXOL 300MG/ML 150 ML BTL ONE (13:36)
[2018-12-20 14:00] VITALS: BP 140/75; PULSE 80; RESP 18
--- NOTE | 2018-12-20 15:15 | PN ---
Date/Time of Note Date/Time of Note DATE: 12/20/18 TIME: 15:15 Objective Vitals Vital Signs Date Temp Pulse Resp B/P (MAP) Pulse Ox O2 O2 Flow FiO2 Time Delivery Rate 12/20/18 97.8 80 18 140/75 94 Room Air 14:00 (96) Intake and Output 12/19/18 12/19/18 12/20/18 1515:00 23:00 07:00 OutputOutput Total 500 ml BalanceBalance -500 ml Results Result Diagram: 12/20/1812912/20/18129 Medications Medications Current Medications Dextrose/Sodium Chloride 1,000 ml @ 100 mls/hr Q10H IV Last administered on 12/20/18at 05:45; Admin Dose 100 MLS/HR; Start 12/20/18 at 05:30 IV Flush (NS 3 ml) 3 ml PER PROTOCOL IV ; Start 12/20/18 at 05:30 Morphine Sulfate (morphine) 2 mg Q4H PRN IV .SEVERE PAIN 7-10 Last administered on 12/20/18at 05:46; Admin Dose 2 MG; Start 12/20/18 at 05:30 Famotidine (Pepcid Iv) 20 mg Q12 IV Last administered on 12/20/18at 08:52; Admin Dose 20 MG; Start 12/20/18 at 09:00 Albuterol/ Ipratropium (Duoneb) 3 ml Q2H RESP THERAPY PRN HHN SHORTNESS OF BREATH; Start 12/20/18 at 05:30 Lorazepam (Ativan) 0.5 mg Q8H PRN IV anxiety; Start 12/20/18 at 09:30 Hydralazine HCl (Apresoline) 10 mg Q4H PRN IV sbp >160; Start 12/20/18 at 09:30 Pantoprazole (Protonix Iv) 40 mg BID@06,18 IV Last administered on 12/20/18at 10:46; Admin Dose 40 MG; Start 12/20/18 at 10:00 VTE Prophylaxis Risk score (from Nsg)>0 risk: 3 SCD applied (from Nsg): Yes Lines/Catheters IV Catheter Type: Roland in Place: No Assessment/Plan Hospital Course Subjective Patient states abdomen has gotten a lot better since last night Objective Physical exam General: Patient is laying in bed and answers questions appropriately Mentation: Patient is alert and oriented 4, Head: Normocephalic atraumatic Eyes: EOMI, pupils reactive to light Neck: Supple, nontender, midline Respiratory: Clear to auscultation bilaterally Cardiovascular: regular rate, no obvious murmurs Gastrointestinal: Mildly-tender to palpation, bowel sounds heard. Neurological: Moves all extremities spontaneously Skin: No new skin lesions Assessment and plan Small bowel obstruction -Patient has a history of SBO, follows with Dr. Zee in the outpatient setting as he has had bowel surgery in the past. -N.p.o. -NG tube to intermittent suction -IV fluid -Small bowel follow-through when okay per general surgeon Coffee-ground NG tube output -PPI drip -GI consulted -Monitor hemoglobin levels -IV fluids Hypertension -As needed IV anti-hypertensives BPH -Post void residual was minimal, no need for Roland at this point -Continue to monitor Acute kidney injury versus chronic kidney disease -May be due to volume depletion due to SBO -Continue IV fluids -If does not return to baseline values, consult nephrology Leukocytosis -Likely secondary to above SBO, hold off antibiotics for now, patient afebrile Depression -Resume home meds when able to tolerate p.o. Disposition -Appreciate general surgery and GI recommendations. JEAN STUART December 20, 2018 15:15
[2018-12-20] MEDS ORDERED: PANTOPRAZOLE 40 MG INJ IV ONE (15:30)
[2018-12-20] MEDS ORDERED: PANTOPRAZOLE IV 80 MG in SOD CHLORIDE 0.9% 100 ML IVPB ONE (15:30)
[2018-12-20] MEDS: SOD CHLORIDE 0.9% 1,000 ML IV SCH (16:02)
--- NOTE | 2018-12-20 16:15 | CONS ---
Assessment/Plan Assessment/Plan Hospital Course (Demo Recall) Summary Assessment and Plan: Assessment: SBO-with history of recurrent small bowel obstruction and multiple abdominal surgeries Coffee-ground output via NGT -Normal H/H HTN BPH Plan: Continue PPI drip for now Monitor H/H transfuse as needed We will await results of small bowel follow-through Will monitor need for EGD, if significant decrease in hemoglobin or persistent coffee-ground drainage from NG tube we will plan for EGD in the near future. Further recommendations based on clinical course Patient seen in collaboration juan Olmos CC: MISSY OLMOS MD ; Consultation Date/Type/Reason Admit Date/Time December 20, 2018 at 02:25 Date of Consultation: December 20, 2018 Type of Consult GI Reason for Consultation Coffee-ground- out-put from NGT Date/Time of Note DATE: 12/20/18 TIME: 16:07 Hx of Present Illness This is a 73-year-old male with past medical history of hypertension, depression, BPH, recurrent small bowel obstruction with multiple abdominal surgeries who presented to the hospital with complaints of abdominal pain distention. Patient had a CT abdomen pelvis without contrast showing high-grade mid small bowel obstruction. The transition point is immediately beyond the small bowel anastomosis where there is abrupt kinking of the small bowel and cause for the obstruction may be secondary to adhesions. NG tube was inserted with noted dark output appeared to be coffee-ground in nature. Hematology obtained this morning at 130 shows a hemoglobin of 15.3, hematocrit 46.5, platelet count 246 INR 0.85. GI has been consulted for further evaluation regarding recurrent drainage. Thus far patient has been started on a PPI drip tube is currently clamped as patient is in the process of a small bowel follow-t hrough patient feels output looks less dark than earlier today he denies epigastric pain. Zafar possibility for upper endoscopy if bleeding does not stop or hemoglobin drops pending results of small bowel follow-through patient verbalized understanding is agreeable. Review of Systems: A 12 system, review was conducted and is negative except as noted in the HPI or here. Past Medical History Home Meds Reported Medications Irbesartan* (Irbesartan*) 300 Mg Tablet, 150 MG PO BID for 60 Days TAKE HALF TABLET BY MOUTH (150MG) TWO TIMES DAILY 12/20/18 Clonazepam* (Clonazepam*) 0.5 Mg Tablet, 0.5 MG PO DAILY for 30 Days, #30 12/20/18 Imipramine Hcl* (Imipramine Hcl*) 25 Mg Tablet, 25 MG PO DAILY for 30 Days, #30 12/20/18 Olmesartan-Hydrochlorothiazide (Benicar HCT) 20-12.5 Mg Tablet, 1 TAB PO QAM, #3 0 TAB 03/23/17 Olmesartan Medoxomil (Benicar) 20 Mg Tablet, 20 MG PO QPM, #30 TAB 03/23/17 Vilazodone Hcl (Viibryd) 40 Mg Tablet, 40 MG PO QAM, TAB 02/03/17 Folic Acid* (Folic Acid*) 1 Mg Tablet, 1 MG PO DAILY, TAB 02/03/17 Discontinued Reported Medications Amlodipine Besylate* (Norvasc*) 5 Mg Tablet, 5 MG PO DAILY, TAB 03/23/17 Imipramine Hcl* (Imipramine Hcl*) 50 Mg Tablet, 50 MG PO HS, TAB 02/03/17 Ropinirole Hcl* (Ropinirole Hcl*) 1 Mg Tablet, 1 MG PO HS, TAB 02/03/17 Ferrous Sulfate* (Ferrous Sulfate*) 325 Mg Tabec, 325 MG PO BID, TAB 02/03/17 Medications Current Medications IV Flush (NS 3 ml) 3 ml PER PROTOCOL IV ; Start 12/20/18 at 05:30 Morphine Sulfate (morphine) 2 mg Q4H PRN IV .SEVERE PAIN 7-10 Last administered on 12/20/18at 05:46; Admin Dose 2 MG; Start 12/20/18 at 05:30 Albuterol/ Ipratropium (Duoneb) 3 ml Q2H RESP THERAPY PRN HHN SHORTNESS OF BREATH; Start 12/20/18 at 05:30 Lorazepam (Ativan) 0.5 mg Q8H PRN IV anxiety; Start 12/20/18 at 09:30 Hydralazine HCl (Apresoline) 10 mg Q4H PRN IV sbp >160; Start 12/20/18 at 09:30 Pantoprazole 80 mg/Sodium Chloride 100 ml @ 10 mls/hr Q10H IV ; Start 12/20/18 at 16:30 Sodium Chloride 1,000 ml @ 100 mls/hr Q10H IV Last administered on 12/20/18at 16:02; Admin Dose 100 MLS/HR; Start 12/20/18 at 15:30 Allergies: Coded Allergies: ondansetron (Unverified Allergy, Unknown, PAIN/HIVES, 12/20/18) Social History Alcohol Use: none Smoking Status: Never smoker Drug Use: none Exam/Review of Systems Exam Vitals Vital Signs Date Temp Pulse Resp B/P (MAP) Pulse Ox O2 O2 Flow FiO2 Time Delivery Rate 12/20/18 97.8 80 18 140/75 94 Room Air 14:00 (96) Intake and Output 12/19/18 12/19/18 12/20/18 1515:00 23:00 07:00 OutputOutput Total 500 ml BalanceBalance -500 ml Exam PHYSICAL EXAMINATION: GENERAL: Well developed, well nourished, alert & oriented x 3, in no acute distress SKIN: No lesions, no stigmata chronic liver disease, no evidence of bleeding diathesis EYES: Pupils equal reactive to light, no discharge. EARS/NOSE AND THROAT: Ears normal, nose normal, oropharynx normal, oral membranes well hydrated without lesions. NECK: Supple, no masses. CHEST: Inspection within normal limits. CARDIOVASCULAR: Heart: Regular rate and rhythm RESPIRATORY: Lungs clear to auscultation GASTROINTESTINAL AND LIVER: Abdomen: Soft, mild tenderness, non-distended, no hernias, no masses, no organomegaly, no ascites, no guarding, no rebound tenderness, normoactive bowel sounds. Rectal: Deferred. EXTREMITIES: No cyanosis, clubbing or edema. Results Result Diagram: 12/20/18 0130 12/20/18 0130 Results 24hrs Laboratory Tests Test 12/20/18 01:30 12/20/18 05:40 12/20/18 09:59 White Blood Count 12.3 #H Red Blood Count 5.26 Hemoglobin 15.3 Hematocrit 46.5 Mean Corpuscular Volume 88.4 Mean Corpuscular Hemoglobin 29.1 Mean Corpuscular Hemoglobin Concent 32.9 Red Cell Distribution Width 13.9 Platelet Count 246 Mean Platelet Volume 10.1 Immature Granulocytes % 0.500 H Neutrophils % 84.2 H Lymphocytes % 9.7 L Monocytes % 4.2 Eosinophils % 1.2 Basophils % 0.2 Nucleated Red Blood Cells % 0.0 Immature Granulocytes # 0.060 H Neutrophils # 10.4 H Lymphocytes # 1.2 Monocytes # 0.5 Eosinophils # 0.2 Basophils # 0.0 Nucleated Red Blood Cells # 0.0 Prothrombin Time 11.7 L Prothrombin Time Ratio 0.9 INR International Normalized Ratio 0.85 Activated Partial Thromboplast Time 32.0 Sodium Level 141 Potassium Level 4.5 Chloride Level 102 Carbon Dioxide Level 29 Anion Gap 10 Blood Urea Nitrogen 25 H Creatinine 1.84 H Est Glomerular Filtrat Rate mL/min Glucose Level 144 Calcium Level 10.0 Total Bilirubin 0.9 Direct Bilirubin 0.00 Indirect Bilirubin 0.9 Aspartate Amino Transf (AST/SGOT) 29 Alanine Aminotransferase (ALT/SGPT) 33 Alkaline Phosphatase 109 Troponin I < 0.012 Total Protein 8.5 H Albumin 4.5 Globulin 4.00 H Albumin/Globulin Ratio 1.12 Lipase 74 Urine Color YELLOW Urine Clarity CLEAR Urine pH 8.0 Urine Specific [place] 1.015 Urine Ketones NEGATIVE Urine Nitrite NEGATIVE Urine Bilirubin NEGATIVE Urine Urobilinogen NEGATIVE Urine Leukocyte Esterase NEGATIVE Urine Hemoglobin NEGATIVE Urine Glucose NEGATIVE Urine Total Protein NEGATIVE Lactic Acid Level 1.6 Medications Medication Current Medications IV Flush (NS 3 ml) 3 ml PER PROTOCOL IV ; Start 12/20/18 at 05:30 Morphine Sulfate (morphine) 2 mg Q4H PRN IV .SEVERE PAIN 7-10 Last administered on 12/20/18at 05:46; Admin Dose 2 MG; Start 12/20/18 at 05:30 Albuterol/ Ipratropium (Duoneb) 3 ml Q2H RESP THERAPY PRN HHN SHORTNESS OF BREATH; Start 12/20/18 at 05:30 Lorazepam (Ativan) 0.5 mg Q8H PRN IV anxiety; Start 12/20/18 at 09:30 Hydralazine HCl (Apresoline) 10 mg Q4H PRN IV sbp >160; Start 12/20/18 at 09:30 Pantoprazole 80 mg/Sodium Chloride 100 ml @ 10 mls/hr Q10H IV ; Start 12/20/18 at 16:30 Sodium Chloride 1,000 ml @ 100 mls/hr Q10H IV Last administered on 12/20/18at 16:02; Admin Dose 100 MLS/HR; Start 12/20/18 at 15:30 EVIN POWERS December 20, 2018 16:15
[2018-12-20] MEDS ORDERED: PANTOPRAZOLE IV 80 MG in SOD CHLORIDE 0.9% 100 ML IV SCH (16:30)
[2018-12-20 20:23] VITALS: BP 132/82; PULSE 78; RESP 20
[2018-12-21] MEDS: LORAZEPAM 2 MG INJ IV PRN (00:42)
[2018-12-21] MEDS: SOD CHLORIDE 0.9% 1,000 ML IV SCH ×3 (02:09→21:30)
[2018-12-21 02:24] VITALS: BP 130/78; PULSE 77; RESP 17
[2018-12-21] MEDS: PANTOPRAZOLE 40 MG INJ IV SCH ×2 (06:19→18:00)
[2018-12-21 08:08] VITALS: BP 139/80; PULSE 61; RESP 18
--- NOTE | 2018-12-21 11:29 | PN ---
Date/Time of Note Date/Time of Note DATE: 12/21/18 TIME: 11:28 Objective Vitals Vital Signs Date Temp Pulse Resp B/P (MAP) Pulse Ox O2 O2 Flow FiO2 Time Delivery Rate 12/21/18 98.5 61 18 139/80 96 Room Air 08:08 (99) Intake and Output 12/20/18 12/20/18 12/21/18 1515:00 23:00 07:00 IntakeIntake Total 1350 ml 100 ml 1300 ml OutputOutput Total 300 ml 700 ml 978 ml BalanceBalance 1050 ml -600 ml 322 ml Results Result Diagram: 12/21/1882312/21/1824 Medications Medications Current Medications IV Flush (NS 3 ml) 3 ml PER PROTOCOL IV ; Start 12/20/18 at 05:30 Morphine Sulfate (morphine) 2 mg Q4H PRN IV .SEVERE PAIN 7-10 Last administered on 12/20/18at 05:46; Admin Dose 2 MG; Start 12/20/18 at 05:30 Albuterol/ Ipratropium (Duoneb) 3 ml Q2H RESP THERAPY PRN HHN SHORTNESS OF BREATH; Start 12/20/18 at 05:30 Lorazepam (Ativan) 0.5 mg Q8H PRN IV anxiety Last administered on 12/21/18at 00:42; Admin Dose 0.5 MG; Start 12/20/18 at 09:30 Hydralazine HCl (Apresoline) 10 mg Q4H PRN IV sbp >160; Start 12/20/18 at 09:30 Sodium Chloride 1,000 ml @ 100 mls/hr Q10H IV Last administered on 12/21/18at 02:09; Admin Dose 100 MLS/HR; Start 12/20/18 at 15:30 Pantoprazole (Protonix Iv) 40 mg BID@06,18 IV Last administered on 12/21/18at 06:19; Admin Dose 40 MG; Start 12/21/18 at 06:00 VTE Prophylaxis Risk score (from Nsg)>0 risk: 5 SCD applied (from Nsg): Yes Lines/Catheters IV Catheter Type: Roland in Place: No Assessment/Plan Hospital Course Subjective Patient had large bowel movement overnight Objective Physical exam General: Patient is laying in bed and answers questions appropriately Mentation: Patient is alert and oriented 4, Head: Normocephalic atraumatic Eyes: EOMI, pupils reactive to light Neck: Supple, nontender, midline Respiratory: Clear to auscultation bilaterally Cardiovascular: regular rate, no obvious murmurs Gastrointestinal: Nontender to palpation, bowel sounds heard. Neurological: Moves all extremities spontaneously Skin: No new skin lesions Assessment and plan Small bowel obstruction -Patient has a history of SBO, follows with Dr. Zee in the outpatient setting as he has had bowel surgery in the past. -N.p.o. until surgery changes -NG tube to intermittent suction -IV fluid -Small bowel follow-through showing partial obstruction Coffee-ground NG tube output -PPI drip refused per patient as he states that Protonix is a bad medication, I tried to explain the patient the importance of this medication however states and still refused. However patient has been taking IV Protonix twice a day at the very least. -GI consulted -Monitor hemoglobin levels, has been stable -IV fluids Hypertension -As needed IV anti-hypertensives BPH -Post void residual was minimal, no need for Roland at this point -Continue to monitor Acute kidney injury versus chronic kidney disease -May be due to volume depletion due to SBO -Continue IV fluids -If does not return to baseline values, consult nephrology Leukocytosis -Likely secondary to above SBO, hold off antibiotics for now, patient afebrile Depression -Resume home meds when able to tolerate p.o. Disposition -Appreciate general surgery and GI recommendations. JEAN STUART December 21, 2018 11:29
--- NOTE | 2018-12-21 12:43 | PN ---
Date/Time of Note Date/Time of Note DATE: 12/21/18 TIME: 12:34 Assessment/Plan VTE Prophylaxis Risk score (from Ns)>0 risk: 5 SCD applied (from Ns): Yes Pharmacological prophylaxis: NA/contraindicated Pharm contraindication: bleeding Lines/Catheters IV [facility] Type [facility]from [facility]): Urinary Cath still in place: No Assessment/Plan Assessment/Plan Assessment: SBO-mid duodenum History of recurrent small bowel obstruction and multiple abdominal surgeries Coffee-ground output via NGT -Normal H/H HTN BPH Plan: Continue PPI twice daily Monitor H/H transfuse as needed Hemoglobin is stable therefore EGD is not indicated. Defer to surgery Patient seen in collaboration wilt Dr. Olmos Subjective: Patient is feeling better. He denies abdominal pain, nausea or vomiting. NG tube in place to low intermittent suction with minimal output overnight. Small bowel follow-through shows partial obstruction in the mid small bowel which is not reachable with endoscope. Hematemesis resolved and hemoglobin is stable 14.0. Patient is being followed by surgery. If small bowel obstruction becomes persistent patient may need surgical interventions. With no further recommendations GI will sign off and will be available for consultation upon request. PHYSICAL EXAMINATION: GENERAL: Well developed, well nourished, alert & oriented x 3, in no acute distress SKIN: No lesions, no stigmata chronic liver disease, no evidence of bleeding diathesis LYMPHATIC: No palpable lymphadenopathy. HEAD: Normocephalic, atraumatic, no tenderness. EYES: Pupils equal reactive to light and accommodation, full extraocular movements, sclera clear, non-icteric, no discharge. EARS/NOSE AND THROAT: Ears normal, nose normal, oropharynx normal, oral membranes well hydrated without lesions. NG tube in place to low intermittent suction. NECK: Supple, no masses, thyroid normal, JVP within normal limits, carotids normal without bruits. CHEST: Inspection within normal limits. CARDIOVASCULAR: Heart: Regular rate and rhythm, no murmurs, gallops or rubs. Peripheral pulses present within normal limits, no cyanosis, clubbing or edemas. No pulsatile abdominal mass RESPIRATORY: Lungs clear to auscultation and percussion, no wheezing, no rubs GASTROINTESTINAL AND LIVER: Abdomen: Soft, non tenderness, non-distended, no hernias, no masses, no organomegaly, no ascites, no guarding, no rebound tenderness, normoactive bowel sounds. Rectal: Deferred. GENITOURINARY: [Male genitalia within normal limits. EXTREMITIES: No cyanosis, clubbing or edema. Result Diagram: 12/21/1882312/21/18823 Results 24hrs Laboratory Tests Test 12/20/18 17:38 12/21/18 00:50 12/21/18 08:24 Hemoglobin 15.3 14.0 14.4 Hematocrit 46.7 43.7 45.7 White Blood Count 8.9 # Red Blood Count 5.02 Mean Corpuscular Volume 91.0 Mean Corpuscular Hemoglobin 28.7 L Mean Corpuscular Hemoglobin Concent 31.5 L Red Cell Distribution Width 14.3 Platelet Count 251 Mean Platelet Volume 10.4 Immature Granulocytes % 0.300 Neutrophils % 65.3 Lymphocytes % 23.6 Monocytes % 9.0 Eosinophils % 1.6 Basophils % 0.2 Nucleated Red Blood Cells % 0.0 Immature Granulocytes # 0.030 Neutrophils # 5.8 Lymphocytes # 2.1 Monocytes # 0.8 Eosinophils # 0.1 Basophils # 0.0 Nucleated Red Blood Cells # 0.0 Sodium Level 141 Potassium Level 4.2 Chloride Level 110 Carbon Dioxide Level 23 Anion Gap 8 Blood Urea Nitrogen 19 Creatinine 1.63 H Est Glomerular Filtrat Rate mL/min Glucose Level 113 Calcium Level 9.0 Phosphorus Level 2.8 Magnesium Level 2.3 Total Bilirubin 1.7 H Direct Bilirubin 0.00 Indirect Bilirubin 1.7 H Aspartate Amino Transf (AST/SGOT) 20 Alanine Aminotransferase (ALT/SGPT) 21 Alkaline Phosphatase 90 Total Protein 7.3 # Albumin 3.9 Globulin 3.40 H Albumin/Globulin Ratio 1.14 CC: MISSY OLMOS MD ; Exam/Review of Systems Exam Vitals Vital Signs Date Temp Pulse Resp B/P (MAP) Pulse Ox O2 O2 Flow FiO2 Time Delivery Rate 12/21/18 98.5 61 18 139/80 96 Room Air 08:08 (99) Intake and Output 12/20/18 12/20/18 12/21/18 1515:00 23:00 07:00 IntakeIntake Total 1350 ml 100 ml 1300 ml OutputOutput Total 300 ml 700 ml 978 ml BalanceBalance 1050 ml -600 ml 322 ml Results Results 24hrs Laboratory Tests Test 12/20/18 17:38 12/21/18 00:50 12/21/18 08:24 Hemoglobin 15.3 14.0 14.4 Hematocrit 46.7 43.7 45.7 White Blood Count 8.9 # Red Blood Count 5.02 Mean Corpuscular Volume 91.0 Mean Corpuscular Hemoglobin 28.7 L Mean Corpuscular Hemoglobin Concent 31.5 L Red Cell Distribution Width 14.3 Platelet Count 251 Mean Platelet Volume 10.4 Immature Granulocytes % 0.300 Neutrophils % 65.3 Lymphocytes % 23.6 Monocytes % 9.0 Eosinophils % 1.6 Basophils % 0.2 Nucleated Red Blood Cells % 0.0 Immature Granulocytes # 0.030 Neutrophils # 5.8 Lymphocytes # 2.1 Monocytes # 0.8 Eosinophils # 0.1 Basophils # 0.0 Nucleated Red Blood Cells # 0.0 Sodium Level 141 Potassium Level 4.2 Chloride Level 110 Carbon Dioxide Level 23 Anion Gap 8 Blood Urea Nitrogen 19 Creatinine 1.63 H Est Glomerular Filtrat Rate mL/min Glucose Level 113 Calcium Level 9.0 Phosphorus Level 2.8 Magnesium Level 2.3 Total Bilirubin 1.7 H Direct Bilirubin 0.00 Indirect Bilirubin 1.7 H Aspartate Amino Transf (AST/SGOT) 20 Alanine Aminotransferase (ALT/SGPT) 21 Alkaline Phosphatase 90 Total Protein 7.3 # Albumin 3.9 Globulin 3.40 H Albumin/Globulin Ratio 1.14 Medications Medication Current Medications IV Flush (NS 3 ml) 3 ml PER PROTOCOL IV ; Start 12/20/18 at 05:30 Morphine Sulfate (morphine) 2 mg Q4H PRN IV .SEVERE PAIN 7-10 Last administered on 12/20/18at 05:46; Admin Dose 2 MG; Start 12/20/18 at 05:30 Albuterol/ Ipratropium (Duoneb) 3 ml Q2H RESP THERAPY PRN HHN SHORTNESS OF BREATH; Start 12/20/18 at 05:30 Lorazepam (Ativan) 0.5 mg Q8H PRN IV anxiety Last administered on 12/21/18at 00:42; Admin Dose 0.5 MG; Start 12/20/18 at 09:30 Hydralazine HCl (Apresoline) 10 mg Q4H PRN IV sbp >160; Start 12/20/18 at 09:30 Sodium Chloride 1,000 ml @ 100 mls/hr Q10H IV Last administered on 12/21/18at 12:03; Admin Dose 100 MLS/HR; Start 12/20/18 at 15:30 Pantoprazole (Protonix Iv) 40 mg BID@06,18 IV Last administered on 12/21/18at 06:19; Admin Dose 40 MG; Start 12/21/18 at 06:00 LIDA SUAZO NP December 21, 2018 12:43
[2018-12-21 15:05] VITALS: BP 135/76; PULSE 67; RESP 18
--- NOTE | 2018-12-21 18:12 | PN ---
Date/Time of Note Date/Time of Note DATE: 12/21/18 TIME: 18:09 Assessment/Plan Lines/Catheters IV Catheter Type (from Nrs): Roland in Place (from Nrs): No Assessment/Plan Chief Complaint/Hosp Course 1. Small bowel obstruction with transition point at mid small bowel:Status post ventral hernia repair and lysis of adhesions in 2016: sbft noted -clamp ng -Ambulate -trial clears 2. Abdominal pain: -Pain management 4.Leukocytosis: resolved -Trend 4. JUNG: improving -Limit nephrotoxic meds -Renally dose meds -Per renal 5. Coffee-ground emesis: -PPI -Hold anticoagulants -Trend H&H 6. BPH: -Agree with Flomax 7.Hypertension history: -Medical management -Highly encouraged weight loss Thank you. Patient seen and examined in collaboration with Dr. Pawan Zee. Subjective 24 Hr Interval Summary + bowel function. Abdominal distention much improved. No fevers, chills, sob, congested cough, cp, palpitations, hahn, dizziness, n/v/d/dysuria. Exam/Review of Systems Vital Signs Vitals Vital Signs Date Temp Pulse Resp B/P (MAP) Pulse Ox O2 O2 Flow FiO2 Time Delivery Rate 12/21/18 98.0 67 18 135/76 99 Room Air 15:05 (95) Intake and Output 12/20/18 12/20/18 12/21/18 1515:00 23:00 07:00 IntakeIntake Total 1350 ml 100 ml 1300 ml OutputOutput Total 300 ml 700 ml 978 ml BalanceBalance 1050 ml -600 ml 322 ml Exam Free Text/Dictation Constitutional: alert, oriented, well developed Psych: nl mood/affect; No anxiety Head: normocephalic, atraumatic Eyes: nl conjunctiva, EOMI, nl lids, nl sclera ENMT: nl external ears & nose, nl lips & teeth, mucosa pink and moist, other (NGT with coffee-ground output) Neck: supple, non-tender; No jvd Respiratory: normal air movement; No congested cough Cardiovascular: regular rate and rhythm, nl pulses Gastrointestinal: soft, distended, tender (Mid abdominal) Genitourinary - Male: nl penis, nl scrotum Musculoskeletal: nl extremities to inspection, nl gait and stance Extremities: normal pulses Neurological: nl mental status, nl speech, nl strength Skin: nl turgor; No rash or lesions Lymph: nl lymph nodes Results Result Diagram: 12/21/18 0824 12/21/18 0824 ABHIJEET NAPOLES NP December 21, 2018 18:12
[2018-12-21 19:49] VITALS: BP 148/82; PULSE 66; RESP 20
[2018-12-22] VITALS (7 sets, daily range): BP systolic 112–180; BP diastolic 58–85; PULSE 60–70; RESP 17–20
[2018-12-22] MEDS: PANTOPRAZOLE 40 MG INJ IV SCH ×2 (05:10→17:07)
[2018-12-22] MEDS: SOD CHLORIDE 0.9% 1,000 ML IV SCH ×2 (07:30→17:30)
--- NOTE | 2018-12-22 09:48 | PN ---
Date/Time of Note Date/Time of Note DATE: 12/22/18 TIME: 09:48 Assessment/Plan VTE Prophylaxis Risk score (from Ns)>0 risk: 4 SCD applied (from Ns): Yes Pharmacological prophylaxis: NA/contraindicated Pharm contraindication: low risk/ambulating Lines/C[facility]ters [facility] IV Urinary Cath still in place: No Assessment/Plan Hospital Course SUBJECTIVE: Denies any abdominal pain. OBJECTIVE: Physical Exam General: Adequately build 73 year-old male lying in bed in no apparent distress. HEENT: Normocephalic, atraumatic. Eyes: Anicteric sclerae, conjunctivae clear. ENT: Nasal septum midline, oral mucosa moist. Neck supple, no JVD noticed. Respiratory: Bilaterally clear breath sounds. No use of accessory muscles of respiration. No adventitious breath sounds. Cardiovascular: S1, S2 heard. Regular rate and rhythm. Abdomen: Soft and nondistended. Multiple surgical scars on the abdomen. Genitourinary: Deferred. Extremities: No cyanosis, no clubbing, no edema. Peripheral pulses palpable. Neurologic: Cranial nerves II through XII grossly intact. The patient is awake, alert, and oriented. Skin: Normal skin turgor. No skin rashes. Labs & Vitals per chart ASSESSMENT & PLAN 73-year-old male with past medical history prostate hypertrophy, hypertension, depression, multiple abdominal surgeries, and recurrent small bowel obstruction, who came to the emergency room with a chief complaint of abdominal pain with CT evidence of small bowel obstruction, who was admitted to inpatient setting for further treatment and evaluation. 1. Recurrent small bowel obstruction. -Status post NGT decompression. -Currently on full liquids. -General surgery following. 2. Coffee-ground emesis from NGT. -Being followed by gastroenterology. -Patient currently on PPI. 3. Hypertension. -Resume antihypertensives 4. Acute on chronic kidney disease. -Monitor BUN and creatinine closely. -Use nephrotoxic drugs with caution. 5. Prostate hypertrophy. -Resume alpha blockers. 6. Depression. -Resume antidepressants. 7. Fluids, electrolytes, and nutrition. -Full liquid diet. 8. DVT prophylaxis -Bilateral SCDs. 9. Plan. -Continue full liquid diet. -Advancement of diet as per general surgery. -Await surgical clearance before discharging the patient home. The patient was seen in collaboration with Dr. Dunham. Result Diagram: 12/22/18 0422 12/22/18 0422 Results 24hrs Laboratory Tests Test 12/22/18 04:22 White Blood Count 7.3 Red Blood Count 4.34 L Hemoglobin 12.5 L Hematocrit 39.4 L Mean Corpuscular Volume 90.8 Mean Corpuscular Hemoglobin 28.8 L Mean Corpuscular Hemoglobin Concent 31.7 L Red Cell Distribution Width 13.7 Platelet Count 214 Mean Platelet Volume 10.2 Immature Granulocytes % 0.400 Neutrophils % 64.2 Lymphocytes % 22.3 Monocytes % 10.2 Eosinophils % 2.6 Basophils % 0.3 Nucleated Red Blood Cells % 0.0 Immature Granulocytes # 0.030 Neutrophils # 4.7 Lymphocytes # 1.6 Monocytes # 0.7 Eosinophils # 0.2 Basophils # 0.0 Nucleated Red Blood Cells # 0.0 Sodium Level 139 Potassium Level 3.8 Chloride Level 108 Carbon Dioxide Level 25 Anion Gap 6 Blood Urea Nitrogen 19 Creatinine 1.39 H Est Glomerular Filtrat Rate mL/min Glucose Level 83 Calcium Level 8.8 Phosphorus Level 3.1 Magnesium Level 2.2 Exam/Review of Systems Exam Vitals Vital Signs Date Temp Pulse Resp B/P (MAP) Pulse Ox O2 O2 Flow FiO2 Time Delivery Rate 12/22/18 98.5 65 18 112/58 99 Room Air 07:55 (76) Intake and Output 12/21/18 12/21/18 12/22/18 1515:00 23:00 07:00 IntakeIntake Total 600 ml 600 ml 360 ml OutputOutput Total 80 ml 100 ml BalanceBalance 520 ml 500 ml 360 ml Results Results 24hrs Laboratory Tests Test 12/22/18 04:22 White Blood Count 7.3 Red Blood Count 4.34 L Hemoglobin 12.5 L Hematocrit 39.4 L Mean Corpuscular Volume 90.8 Mean Corpuscular Hemoglobin 28.8 L Mean Corpuscular Hemoglobin Concent 31.7 L Red Cell Distribution Width 13.7 Platelet Count 214 Mean Platelet Volume 10.2 Immature Granulocytes % 0.400 Neutrophils % 64.2 Lymphocytes % 22.3 Monocytes % 10.2 Eosinophils % 2.6 Basophils % 0.3 Nucleated Red Blood Cells % 0.0 Immature Granulocytes # 0.030 Neutrophils # 4.7 Lymphocytes # 1.6 Monocytes # 0.7 Eosinophils # 0.2 Basophils # 0.0 Nucleated Red Blood Cells # 0.0 Sodium Level 139 Potassium Level 3.8 Chloride Level 108 Carbon Dioxide Level 25 Anion Gap 6 Blood Urea Nitrogen 19 Creatinine 1.39 H Est Glomerular Filtrat Rate mL/min Glucose Level 83 Calcium Level 8.8 Phosphorus Level 3.1 Magnesium Level 2.2 Medications Medication Current Medications IV Flush (NS 3 ml) 3 ml PER PROTOCOL IV ; Start 12/20/18 at 05:30 Morphine Sulfate (morphine) 2 mg Q4H PRN IV .SEVERE PAIN 7-10 Last administered on 12/20/18at 05:46; Admin Dose 2 MG; Start 12/20/18 at 05:30 Albuterol/ Ipratropium (Duoneb) 3 ml Q2H RESP THERAPY PRN HHN SHORTNESS OF BREATH; Start 12/20/18 at 05:30 Lorazepam (Ativan) 0.5 mg Q8H PRN IV anxiety Last administered on 12/21/18at 00:42; Admin Dose 0.5 MG; Start 12/20/18 at 09:30 Hydralazine HCl (Apresoline) 10 mg Q4H PRN IV sbp >160; Start 12/20/18 at 09:30 Sodium Chloride 1,000 ml @ 100 mls/hr Q10H IV Last administered on 12/21/18at 12:03; Admin Dose 100 MLS/HR; Start 12/20/18 at 15:30 Pantoprazole (Protonix Iv) 40 mg BID@06,18 IV Last administered on 12/22/18 05:10; Admin Dose 40 MG; Start 12/21/18 at 06:00 KAREEM MCCLURE NP December 22, 2018 09:48
[2018-12-22] MEDS: LOSARTAN 50 MG TAB PO SCH (21:56)
[2018-12-22] MEDS: LORAZEPAM 2 MG INJ IV PRN (21:58)
[2018-12-23] MEDS: SOD CHLORIDE 0.9% 1,000 ML IV SCH (03:30)
[2018-12-23] MEDS: PANTOPRAZOLE 40 MG INJ IV SCH (05:47)
[2018-12-23 07:25] VITALS: BP 134/72; PULSE 66; RESP 15
[2018-12-23] MEDS ORDERED: AMLODIPINE 2.5 MG TAB PO SCH (09:00)
[2018-12-23] MEDS ORDERED: clonAZEPAM 0.5 MG TAB PO SCH (09:00)
[2018-12-23] MEDS ORDERED: FOLIC ACID 1 MG TAB PO SCH (09:00)
[2018-12-23] MEDS ORDERED: IMIPRAMINE 25 MG TAB PO SCH (09:00)
[2018-12-23] MEDS: LOSARTAN 50 MG TAB PO SCH (09:12)
--- NOTE | 2018-12-23 09:13 | PDOCDIS ---
Discharge Instructions CONDITION [id number] Patient Condition: [id number] Stable HOME CARE INSTRUCTIONS: [id number] Diet Instructions: [id number] Regular OTHER ORDERS: Other Orders: 1. Resume home medications. 2. Take a regular diet as tolerated. 3. Resume activities as tolerated. 4. Follow-up with your primary care physician in 2 weeks. 5. Please go to the nearest emergency room if you have any significant abdominal pain, persistent nausea/vomiting, or any other unusual signs/symptoms. KAREEM MCCLURE NP December 23, 2018 09:13
--- NOTE | 2018-12-23 09:17 | DS ---
Date/Time of Note Date/Time of Note DATE: 12/23/18 TIME: 09:14 Discharge Summary Admission/Discharge Info Admit Date/Time December 20, 2018 at 02:25 Discharge Date/Time Discharge Diagnosis 1. Recurrent small bowel obstruction. Resolved. 2. Coffee-ground emesis from NGT. 3. Hypertension. 4. Acute on chronic kidney disease. 5. Prostate hypertrophy. 6. Depression. Patient Condition: Stable Consults 1. Ny Olmos MD, Gastroenterology. 2. Pawan Zee MD, General Surgery. Procedures CT Abdomen & Pelvis IMPRESSION: 1. High-grade mid small bowel obstruction. The transition point is immediately beyond a small bowel anastomosis where there is abrupt kinking of the bowel and the cause for obstruction may be an adhesion. Recommend placing an enteric tube. 2. Enlarged prostate gland indents the bladder base. Urinary bladder is moderately full. Recommend clinical correlation for signs of urinary retention. Hx of Present Illness This is a 73-year-old male with past medical history prostate hypertrophy, hypertension, depression, multiple abdominal surgeries, and recurrent small bowel obstruction, who came to the emergency room with a chief complaint of abdominal pain with CT evidence of small bowel obstruction, who was admitted to inpatient setting for further treatment and evaluation. Hospital Course The patient has history of multiple abdominal surgeries and he has prior history of small bowel obstructions. A general surgery consult was obtained. The patient was started on NGT decompression with improvement in the patient's symptoms. The patient's NGT decompression was discontinued and the patient was started on a clear liquid diet and the patient's diet was advanced as tolerated to a regular consistency diet without any significant gastrointestinal symptoms. The patient responded well to the conservative management. The patient also had an episode of coffee-ground emesis from NGT. Therefore, a gastroenterology consult was obtained. Gastroenterology recommended to start the patient on PPI. The patient was maintained on IV PPI. The patient's H&H remained fairly stable. Once the patient had to be switched to oral PPI, the patient refused stating that it is not do ny good to him. The patient was maintained on IV antihypertensives while the patient was n.p.o. Once the patient was resumed on oral diet, he was resumed on a ARB's. The patient was noticed to have acute on chronic kidney disease and the patient's renal function returned back to his baseline. The patient also had evidence of prostate hypertrophy. The patient was not taking any alpha blockers at home. The patient is hesitant to getting any new medications and he is adamant about taking his home medications specifically the brand names. The patient did not have any evidence of any urinary retention or any other urinary symptoms. The patient has underlying depression. Once the patient was able to tolerate oral intake, he was resumed on his mood stabilizers. The patient had a stable hospital course. The patient is currently tolerating a regular consistency diet. The patient was cleared by consultants to be discharged home. Discharge Instructions 1. Resume home medications. 2. Take a regular diet as tolerated. 3. Resume activities as tolerated. 4. Follow-up with your primary care physician in 2 weeks. 5. Please go to the nearest emergency room if you have any significant abdominal pain, persistent nausea/vomiting, or any other unusual signs/symptoms. The patient verbalized understanding of his discharge instructions. At this time I would like to thank all the consultants for seeing the patient and providing clinical recommendations. The patient was seen in collaboration with Dr. Dunham. Home Meds Reported Medications Irbesartan* (Irbesartan*) 300 Mg Tablet, 150 MG PO BID for 60 Days TAKE HALF TABLET BY MOUTH (150MG) TWO TIMES DAILY 12/20/18 Clonazepam* (Clonazepam*) 0.5 Mg Tablet, 0.5 MG PO DAILY for 30 Days, #30 12/20/18 Imipramine Hcl* (Imipramine Hcl*) 25 Mg Tablet, 25 MG PO DAILY for 30 Days, #30 12/20/18 Olmesartan-Hydrochlorothiazide (Benicar HCT) 20-12.5 Mg Tablet, 1 TAB PO QAM, # 30 TAB 03/23/17 Olmesartan Medoxomil (Benicar) 20 Mg Tablet, 20 MG PO QPM, #30 TAB 03/23/17 Vilazodone Hcl (Viibryd) 40 Mg Tablet, 40 MG PO QAM, TAB 02/03/17 Folic Acid* (Folic Acid*) 1 Mg Tablet, 1 MG PO DAILY, TAB 02/03/17 Discontinued Reported Medications Amlodipine Besylate* (Norvasc*) 5 Mg Tablet, 5 MG PO DAILY, TAB 03/23/17 Imipramine Hcl* (Imipramine Hcl*) 50 Mg Tablet, 50 MG PO HS, TAB 02/03/17 Ropinirole Hcl* (Ropinirole Hcl*) 1 Mg Tablet, 1 MG PO HS, TAB 02/03/17 Ferrous Sulfate* (Ferrous Sulfate*) 325 Mg Tabec, 325 MG PO BID, TAB 02/03/17 Follow-up Plan Patient to follow-up with his primary care physician in 2 weeks. Primary Care Provider Not On Staff Doctor Time spent on discharge: > 30 minutes Pending Labs Laboratory Tests Test 12/23/18 04:44 White Blood Count 6.6 10^3/ul (4.8-10.8) Red Blood Count 4.66 10^6/ul (4.70-6.10) Hemoglobin 13.6 g/dl (14.0-18.0) Hematocrit 41.4 % (42.0-52.0) Mean Corpuscular Volume 88.8 fl (82.0-101.0) Mean Corpuscular Hemoglobin 29.2 pg (29.0-33.0) Mean Corpuscular Hemoglobin Concent 32.9 g/dl (32.0-37.0) Red Cell Distribution Width 13.3 % (11.5-14.5) Platelet Count 232 10^3/UL (140-415) Mean Platelet Volume 10.2 fl (7.4-10.4) Immature Granulocytes % 0.500 % (0.001-0.429) Neutrophils % 65.3 % (39.0-77.0) Lymphocytes % 22.3 % (15.0-51.0) Monocytes % 7.8 % (0.0-11.0) Eosinophils % 3.8 % (0.0-7.0) Basophils % 0.3 % (0.0-2.0) Nucleated Red Blood Cells % 0.0 /100WBC (0.0-0.0) Immature Granulocytes # 0.030 10^3/ul (0.0-0.031) Neutrophils # 4.3 10^3/ul (1.6-7.5) Lymphocytes # 1.5 10^3/ul (0.8-2.9) Monocytes # 0.5 10^3/ul (0.3-0.9) Eosinophils # 0.3 10^3/ul (0.0-0.5) Basophils # 0.0 10^3/ul (0.0-0.1) Nucleated Red Blood Cells # 0.0 10^3/ul (0.0-0.0) Sodium Level 140 mmol/L (135-144) Potassium Level 4.1 mmol/L (3.5-5.1) Chloride Level 107 mmol/L (97-110) Carbon Dioxide Level 25 mmol/L (21-31) Anion Gap 8 (5-13) Blood Urea Nitrogen 16 mg/dl (7-20) Creatinine 1.32 mg/dl (0.61-1.24) Est Glomerular Filtrat Rate mL/min mL/min (>60) Glucose Level 90 mg/dl (70-220) Calcium Level 9.5 mg/dl (8.4-10.2) Phosphorus Level 3.5 mg/dl (2.5-4.9) Magnesium Level 2.1 mg/dl (1.7-2.5) KAREEM MCCLURE NP December 23, 2018 09:17
== END 2018-12-23 11:25 | disposition home or self-care (01) | DRG 389 ==
LOC: E/R 00:53 → MS1 02:25
PROVIDERS: ADMIT Internal Medicine; ATTEND Internal Medicine
DX: K56.609 Unspecified intestinal obstruction, unspecified as to partial versus complete obstruction (principal); N17.9 Acute kidney failure, unspecified; N40.0 Benign prostatic hyperplasia without lower urinary tract symptoms; F32.9 Major depressive disorder, single episode, unspecified; I12.9 Hypertensive chronic kidney disease with stage 1 through stage 4 chronic kidney disease, or unspecified chronic kidney disease; N18.9 Chronic kidney disease, unspecified; R11.10 Vomiting, unspecified
CPT/HCPCS: 71045; 74176; 74250; 80048; 80053; 81003; 83605; 83690; 83735; 84100; 84153; 84154; 84484; 85014; 85018; 85025; 85610; 85730; 93005; C9113; J0360; J2060; J2270; J2765; J7030; J7040; J7042; Q9967